=== PATIENT | female | born 1935 | race Caucasian/White ===

== ENCOUNTER 2016-05-07 14:40 | Inpatient (IN) | payer MEDICARE, OTHER ==
[~2016-05-07] VITALS: Ht 165.1 cm; Wt 66.0 kg
[~2016-05-07 14:40] MED LIST: DOCU250C58 PO; HYDR1TAB PO; LEVO50TA74 PO; METO25TA4 PO; MULT1TAB59 PO; POLY17PO PO; SERT50TA6 PO; SMV40T PO
[2016-05-07] MEDS ORDERED: SOD CHLORIDE 0.9% 250 ML IV STA (15:20)
[2016-05-07] MEDS ORDERED: morphine 2 MG INJ IV STA (15:20)
[2016-05-07] MEDS ORDERED: ONDANSETRON 4 MG INJ IV STA (15:20)
[2016-05-07 15:38] LABS: ADD SCAN DIFF NO
[2016-05-07 15:40] LABS: ABNORMAL IP MESSAGE 1; HEMATOCRIT 39.5 % (37.0-47.0); HEMOGLOBIN 12.9 g/dl (12.0-16.0); MEAN CORPUSCULAR HEMOGLOBIN 32.4 pg (29.0-33.0); MEAN CORPUSCULAR HGB CONC 32.7 g/dl (32.0-37.0); MEAN CORPUSCULAR VOLUME 99.2 fl (82.0-101.0); MEAN PLATELET VOLUME 12.3 fl (7.4-10.4); PLATELET COUNT 139 10^3/UL (140-415); RED BLOOD COUNT 3.98 10^6/ul (4.20-5.40); RED CELL DISTRIBUTION WIDTH 14.1 % (11.5-14.5); WHITE BLOOD COUNT 34.1 10^3/ul (4.8-10.8)
[2016-05-07 15:50] LABS: ALBUMIN 4.2 g/dl (3.3-4.9); POTASSIUM 5.3 mmol/L (3.5-5.1)
[2016-05-07 15:52] LABS: CREATININE 1.14 mg/dl (0.44-1.00)
[2016-05-07 15:53] LABS: ALBUMIN/GLOBULIN RATIO 0.91; BILIRUBIN,INDIRECT 0.4 mg/dl (0-1.1); BILIRUBIN,TOTAL 0.4 mg/dl (0.2-1.3); CALCIUM 10.7 mg/dl (8.4-10.2); TOTAL PROTEIN 8.8 g/dl (6.1-8.1)
--- NOTE | 2016-05-07 16:13 | RADRPT ---
PROCEDURE: XR Chest. CLINICAL INDICATION: Right rib pain. TECHNIQUE: Portable AP view of the chest was obtained. COMPARISON: 02/07/2012 FINDINGS: The cardiomediastinal silhouette is within upper normal limits. The lungs are clear. There is no e vidence for pleural effusion, pneumothorax or pulmonary vascular congestion. The osseous structures are intact with no evidence for acute abnormality. RPTAT:HJJR IMPRESSION: No evidence for acute intrathoracic pathology or interval change from 02/07/2012. Physician Frandy Date Time Electronically viewed and signed by Donato Reyes Physician on 05/07/2016 16:13 /
[2016-05-07] MEDS ORDERED: LEVO150T67 PO (16:39)
[2016-05-07] MEDS ORDERED: ACET-2047 PO (16:41)
[2016-05-07] MEDS ORDERED: METAM PO (16:43)
[2016-05-07] MEDS ORDERED: BISA-57 PO (16:45)
[2016-05-07] MEDS ORDERED: ONDA-43 PO (16:46)
[2016-05-07] MEDS ORDERED: LORA1TAB PO (16:48)
[2016-05-07] MEDS ORDERED: TOPI50TA5 PO (16:51)
[2016-05-07 17:08] LABS: EOSINOPHILS # 0.7 10^3/ul (0.0-0.5); LYMPHOCYTES # 11.6 10^3/ul (0.8-2.9); MONOCYTE # 11.9 10^3/ul (0.3-0.9); NEUTROPHIL # 9.5 10^3/ul (1.6-7.5)
[2016-05-07 17:11] LABS: ANISOCYTOSIS 1+; PLATELET ESTIMATE PLT APPEAR ADEQUATE
--- NOTE | 2016-05-07 17:46 | RADRPT ---
PROCEDURE: CT Abdomen and Pelvis without contrast. CLINICAL INDICATION: Abdominal and pelvic pain. Left flank pain. TECHNIQUE: CT scan of the abdomen and pelvis without contrast was performed. Coronal and sagittal reformatted images were obtained from the axial source images. Images were reviewed on a [employer] PACS workstation. Total exam DLP is 827.12 mGy-cm. CTDIvol is 14.04 mGy. One or more of the f ollowing dose reduction techniques were used: Automated exposure control, adjustment of the mA and/o r kV according to patient size, use of iterative reconstruction technique. COMPARISON: None. FINDINGS: There is mild atelectasis at the left lung base posteriorly. The lung bases are otherwise normal. There is no pleural effusion or pericardial effusion. The heart is mildly enlarged. There is exten sive coronary artery calcification. The liver is normal in size and attenuation. There is no focal hepatic lesion. The gallbladder and bile ducts are normal. The spleen is normal in size. There is no focal splenic lesion. Both adrenals are normal with no enlargement or mass. The pancreas is unremarkable with no mass or evidence of pancreatitis. There is no renal mass or hydronephrosis. 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 A nonobst ructing 0.4 cm calculus is present in the mid left kidney. There is no other renal calculus or uret eral calculus. The abdominal aorta is not dilated. There is calcification in the aorta consistent with atheroscler osis. There is no retroperitoneal lymphadenopathy or mass. There is no pelvic lymphadenopathy or mass. The bladder and distal ureters are normal. The appendix is well seen and appears normal. The bowel and mesentery are normal. There is a right lower quadrant abdominal wall hernia containing only omental fat in a region measuring 1.3 x 2.6 cm in AP and transverse dimensions. There is no h erniated bowel. There is no free fluid or free gas. There are degenerative changes of the spine. There is no fracture or lytic lesion. IMPRESSION: 1. Mild atelectasis at the left lung base posteriorly. 2. Mild cardiomegaly. 3. Coronary artery calcification. 4. Duplex left renal collecting system. 5. Nonobstructing 0.4 cm calculus in the mid left kidney. 6. Atherosclerosis. 7. Normal appendix. 8. Right lower quadrant anterior abdominal wall hernia containing only omental fat. 9. Degenerative changes of the spine. RPTAT: QQ .Herberth Stevens MD, MD Date Time Electronically viewed and signed by .Herberth Stevens MD, on 05/07/2016 17:46 .R/
[2016-05-07] MEDS ORDERED: SOD CHLORIDE 0.9% 1,000 ML IV STA (18:47)
[2016-05-07] MEDS: PIPER-TAZO 3.375 GM IV (PMX) 100 ML IVPB STA ×2 (19:07→20:07)
[2016-05-07 19:50] LABS: ADD UMIC YES; URINE BILIRUBIN (Dip) NEGATIVE (NEGATIVE); URINE BLOOD (Dip) 1+ (NEGATIVE); URINE COLOR LT. YELLOW (YELLOW); URINE GLUCOSE (Dip) NEGATIVE (NEGATIVE); URINE KETONES (Dip) NEGATIVE (NEGATIVE); URINE LEUKOCYTE ESTERASE (Dip) TRACE (NEGATIVE); URINE NITRITE (Dip) NEGATIVE (NEGATIVE); URINE TOTAL PROTEIN (Dip) 1+ (NEGATIVE); URINE UROBILINOGEN (Dip) 0.2 E.U./dL (0.1-1.0)
[2016-05-07 20:08] VITALS: TEMP 99.1
[2016-05-07 20:15] LABS: SQUAMOUS EPITHELIAL CELL,UR MANY; URINE RBCS 0-2 /HPF (0)
[2016-05-07] MEDS ORDERED: SOD CHLORIDE 0.9% 1,000 ML IV SCH (20:53)
[2016-05-07] MEDS ORDERED: ONDANSETRON 4 MG INJ IV PRN ×2 (21:00→23:30)
[2016-05-07] MEDS ORDERED: ACETAMINOPHEN 325 MG TAB PO PRN (21:00)
--- NOTE | 2016-05-07 21:02 | ERA ---
ER Documentation Chief Complaint Date/Time DATE: 05/07/16 TIME: 20:54 Chief Complaint Right chest pain, diffuse abdominal pain HPI This is an 81-year-old female is complaining of right sided chest pain for the past 2 days that she says is sharp and worse with movement. She says that she cannot move in bed or walk around because it hurts her right chest when she does. Denies trauma. No shortness of breath no cough denies fever denies vomiting diarrhea. She is also complaining of diffuse abdominal pain mostly located on the left upper and lower quadrant. She has no dysuria or hematuria. She says nothing seems to make his pain worse or better describes it as "pain ". She is a poor historian. ROS All systems reviewed and are negative except as per history of present illness. Medications Home Meds Reported Medications Topiramate* (Topiramate*) 50 Mg Tablet, 50 MG PO Q6H Y for PRN, TAB 05/07/16 Lorazepam* (Lorazepam*) 1 Mg Tablet, 1 MG PO Q8, #60 TAB 05/07/16 Ondansetron Hcl* (Zofran*) 4 Mg Tab, 4 MG PO TID Y for NAUSEA AND OR VOMITING, TAB 05/07/16 Bisacodyl* (Dulcolax*) 5 Mg Tablet.dr, 10 MG PO DAILY Y for CONSTIPATION, TAB 05/07/16 Psyllium* (Metamucil*) 1 Pkt Susp, 1 PKT PO DAILY Y for PRN, PACKET 05/07/16 Acetaminophen* (Acetaminophen*) 650 Mg Tablet, 650 MG PO Q4 Y for ELEVATED TEMP> 100 DEG., #30 TAB FOR MILD PAIN 05/07/16 Levothyroxine Sodium* (Levothyroxine Sodium*) 150 Mcg Tablet, 150 MCG PO BEFORE BREAKFAST, #30 TAB 05/07/16 Discontinued Reported Medications Hydrocodone Bit/Acetaminophen (Hydrocodone/Apap 5/500 Tab) 1 Tab Tablet, 1 TAB PO Q6 Y 02/07/12 Multivitamins* (Multivitamins*) 1 Tab Tablet, 1 TAB PO DAILY 02/07/12 Polyethylene Glycol (Miralax) 17 Gm/Pkt Liq, 17 GM PO DAILY 02/07/12 Simvastatin (Simvastatin) 40 Mg Tablet, 40 MG PO HS 02/07/12 Sertraline Hcl* (Sertraline Hcl*) 50 Mg Tablet, 50 MG PO TID 02/07/12 Metoprolol Tartrate* (Lopressor*) 25 Mg Tablet, 25 MG PO BID 02/07/12 Docusate Sodium* (Colace*) 250 Mg Capsule, 250 MG PO DAILY 02/07/12 Levothyroxine Sodium* (Levothyroxine Sodium*) 50 Mcg Tablet, 50 MCG PO DAILY 02/07/12 Allergies Allergies: Coded Allergies: No Known Allergy (Unverified , 05/07/16) PMhx/Soc History of Surgery: Yes (BREAT CANCER WITH LEFT BREAST REMOVAL) Anesthesia Reaction: No Hx Neurological Disorder: Yes (LT SIDED STROKE) Hx Respiratory Disorders: No Hx Cardiac Disorders: Yes (HTN,HYPERLIPIDEMIA) Hx Psychiatric Problems: Yes (DEPRESSION) Hx Miscellaneous Medical Probl: Yes (HYPOTHYROIDISM,ANEMIA,THROMBOCYTOPENIA) Hx Alcohol Use: No Hx Substance Use: No Hx Tobacco Use: No Smoking Status: Never smoker FmHx Family History: No coronary disease Physical Exam Vitals Vital Signs Date Time Temp Pulse Resp B/P Pulse Ox O2 Delivery O2 Flow Rate FiO2 05/07/16 20:08 99.1 105 24 137/70 100 Room Air 05/07/16 16:47 101 19 118/67 100 Room Air 05/07/16 14:56 98.2 84 19 122/75 97 Physical Exam Const: Well-developed, well-nourished Head: Atraumatic, normocephalic Eyes: Normal Conjunctiva, PERRLA, EOMI, normal sclera, no nystagmus ENT: Normal External Ears, Nose and Mouth, moist mucus membranes. Neck: Full range of motion. No meningismus, no lymphadenopathy. Resp: Clear to auscultation bilaterally, no wheezing, rhonchi, rales Cardio: Regular rate and rhythm, no murmurs, S1 S2 present, there is reproducible tenderness to the right upper and lower rib cage with palpation. She says this is the same pain. The pain is sharp. Abd: Soft, mild diffuse pain in the abdomen there is more pain in the left upper and lower quadrant that is mild to moderate, non distended. Normal bowel sounds, no guarding or rebound, no pulsitile abdominal masses or bruits Skin: No petechiae or rashes, no ecchymosis , no maculopapular rash Back: No midline or flank tenderness Ext: No cyanosis, or edema, FROM x 4, normal inspection, neurovascularly intact x 4 Neur: Awake and alert, STR 5/5 x 4, sensation intact x 4, no focal findings, cerebellum intact Psych: Normal Mood and Affect Result Diagram: 05/07/16 1530 05/07/16 1530 Results 24 hrs Laboratory Tests Test 05/07/16 15:30 05/07/16 19:40 Alanine Aminotransferase (ALT/SGPT) 20IU/L Albumin 4.2g/dl Albumin/Globulin Ratio 0.91 Alkaline Phosphatase 105IU/L Anion Gap 23 Anisocytosis 1+ Aspartate Amino Transf (AST/SGOT) 26IU/L Band Neutrophils % 1.0% Blood Urea Nitrogen 34mg/dl Calcium Level 10.7mg/dl Carbon Dioxide Level 27mmol/L Chloride Level 97mmol/L Creatinine 1.14mg/dl Direct Bilirubin 0.00mg/dl Eosinophils # 0.710^3/ul Eosinophils % 2.0% Globulin 4.60g/dl Glucose Level 247mg/dl Hematocrit 39.5% Hemoglobin 12.9g/dl Indirect Bilirubin 0.4mg/dl Lipase 40U/L Lymphocytes # 11.610^3/ul Lymphocytes % 34.0% Macrocytosis OCCASIONAL Mean Corpuscular Hemoglobin 32.4pg Mean Corpuscular Hemoglobin Concent 32.7g/dl Mean Corpuscular Volume 99.2fl Mean Platelet Volume 12.3fl Monocytes # 11.910^3/ul Monocytes % 35.0% Neutrophils # 9.510^3/ul Neutrophils % 28.0% Platelet Count 59591^3/UL Platelet Estimate PLT APPEAR ADEQUATE Potassium Level 5.3mmol/L Red Blood Count 3.9810^6/ul Red Cell Distribution Width 14.1% Sodium Level 142mmol/L Total Bilirubin 0.4mg/dl Total Protein 8.8g/dl White Blood Count 34.110^3/ul Urine Amorphous Urates MODERATE Urine Bilirubin NEGATIVE Urine Clarity SLIGHTLY CLOUDY Urine Color LT. YELLOW Urine Glucose NEGATIVE% Urine Hemoglobin 1+ Urine Ketones NEGATIVE Urine Leukocyte Esterase TRACE Urine Microscopic RBC 0-2/HPF Urine Microscopic WBC 0-2/HPF Urine Nitrite NEGATIVE Urine Specific [place] 1.015 Urine Squamous Epithelial Cells MANY Urine Total Protein 1+ Urine Urobilinogen 0.2 E.U./dL Urine pH 5.5 Current Medications Medications (Trade) Dose Ordered Sig/Mireya Route PRN Reason Start Time Stop Time Status Last Admin Dose Admin Sodium Chloride (NS) 250 ml @ 250 mls/hr Q1H STAT IV 05/07/16 15:20 05/07/16 16:19 DC 05/07/16 15:42 Morphine Sulfate (morphine) 2 mg ONCE STAT IV 05/07/16 15:20 05/07/16 15:22 DC 05/07/16 15:41 Ondansetron HCl 4 mg 4 mg ONCE STAT IV 05/07/16 15:20 05/07/16 15:22 DC 05/07/16 15:41 Sodium Chloride 1,000 ml @ 1,000 mls/hr Q1H STAT IV 05/07/16 18:47 05/07/16 19:46 DC 05/07/16 19:06 Piperacillin Sod/ Tazobactam Sod (Zosyn 3.375gm/ 100 ml (Pmx)) 100 ml @ 200 mls/hr ONCE STAT IVPB 05/07/16 18:47 05/07/16 19:16 DC 05/07/16 20:07 Procedures/MDM PROCEDURE: CT Abdomen and Pelvis without contrast. CLINICAL INDICATION: Abdominal and pelvic pain. Left flank pain. TECHNIQUE: CT scan of the abdomen and pelvis without contrast was performed. Coronal and sagittal reformatted images were obtained from the axial source images. Images were reviewed on a high-resolution PACS workstation. Total exam DLP is 827.12 mGy-cm. CTDIvol is 14.04 mGy. One or more of the following dose reduction techniques were used: Automated exposure control, adjustment of the mA and/or kV according to patient size, use of iterative reconstruction technique. COMPARISON: None. FINDINGS: There is mild atelectasis at the left lung base posteriorly. The lung bases are otherwise normal. There is no pleural effusion or pericardial effusion. The heart is mildly enlarged. There is extensive coronary artery calcification. The liver is normal in size and attenuation. There is no focal hepatic lesion. The gallbladder and bile ducts are normal. The spleen is normal in size. There is no focal splenic lesion. Both adrenals are normal with no enlargement or mass. The pancreas is unremarkable with no mass or evidence of pancreatitis. There is no renal mass or hydronephrosis. 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 A nonobstructing 0.4 cm calculus is present in the mid left kidney. There is no other renal calculus or ureteral calculus. The abdominal aorta is not dilated. There is calcification in the aorta consistent with atherosclerosis. There is no retroperitoneal lymphadenopathy or mass. There is no pelvic lymphadenopathy or mass. The bladder and distal ureters are normal. The appendix is well seen and appears normal. The bowel and mesentery are normal. There is a right lower quadrant abdominal wall hernia containing only omental fat in a region measuring 1.3 x 2.6 cm in AP and transverse dimensions. There is no herniated bowel. There is no free fluid or free gas. There are degenerative changes of the spine. There is no fracture or lytic lesion. IMPRESSION: 1. Mild atelectasis at the left lung base posteriorly. 2. Mild cardiomegaly. 3. Coronary artery calcification. 4. Duplex left renal collecting system. 5. Nonobstructing 0.4 cm calculus in the mid left kidney. 6. Atherosclerosis. 7. Normal appendix. 8. Right lower quadrant anterior abdominal wall hernia containing only omental fat. 9. Degenerative changes of the spine. RPTAT: QQ .Herberth Stevens MD, MD Date Time Electronically viewed and signed by .Herberth Stevens MD, on 05/07/2016 17:46 .R/ CC: KENNY DE LOS SANTOS DO PROCEDURE: XR Chest. CLINICAL INDICATION: Right rib pain. TECHNIQUE: Portable AP view of the chest was obtained. COMPARISON: 02/07/2012 FINDINGS: The cardiomediastinal silhouette is within upper normal limits. The lungs are clear. There is no evidence for pleural effusion, pneumothorax or pulmonary vascular congestion. The osseous structures are intact with no evidence for acute abnormality. RPTAT:HJJR IMPRESSION: No evidence for acute intrathoracic pathology or interval change from 2011. Physician Frandy Date Time Electronically viewed and signed by Donato Reyes Physician on 05/07/2016 16:13 JR/ CC: KENNY DE LOS SANTOS DO EKG: Rate/Rhythm: Normal Sinus Rhythm,NL intervals QRS, ST, QT: NORMAL FL, QRS, QT] Impression: NORMAL EKG Patient has a very elevated white blood count 34.1. However there is no signs of infectious source. Chest x-ray is negative. Urinalysis is negative. CT scan of abdomen is negative. She may have some bacteremia issue or may be a leukemia. Discussed the case with Dr. Bard shepard who recommended ordering a CT chest and will admit for further workup. Departure Diagnosis: Primary Impression: Leukocytosis Qualified Code: D72.829 - Leukocytosis, unspecified type Additional Impressions: Abdominal pain Qualified Code: R10.84 - Generalized abdominal pain Chest wall pain Condition: Stable KENNY DE LOS SANTOS DO May 07, 2016 21:02
--- NOTE | 2016-05-07 21:35 | RADRPT ---
PROCEDURE: CT Chest. CLINICAL INDICATION: Chest pain TECHNIQUE: CT scan of the chest without contrast was performed on the [employer] volumetric [address] [facility] without contrast. Coronal and sagittal reformatted images were obtained from the axial source images. The CTDI vol is 15.59 mGy and the DLP is 505.29 mGy-cm. COMPARISON: None. FINDINGS: Mild dependent bibasilar atelectasis is seen. No dense consolidation or pleural effusion is seen. The mediastinum and hilum are unremarkable without evidence for mass or lymphadenopathy. Aortic and coronary vascular calcifications are seen. The vascular structures of the mediastinum are otherwise unremarkable in course and caliber. The heart size is mildly enlarged and is without evidence for pericardial thickening or effusion. The axillary regions, subpectoral regions, and supraclavicular regions are all unremarkable. A small hiatal hernia is seen. Imaging obtained through the upper abdo men reveals no acute abnormality. Degenerative spondylosis of the thoracic spine is seen. No osteol ytic or osteoblastic lesion is detected. IMPRESSION: 1. Mild cardiomegaly. 2. Otherwise, no acute pathology in the chest. 3. Small hiatal hernia. RPTAT: HPNM Physician Mary Date Time Electronically viewed and signed by Physician Mary on 05/07/2016 21:34 /
[2016-05-07 23:29] VITALS: BP 107/59; RESP 20
[2016-05-07] MEDS ORDERED: ENOXAPARIN 30 MG/0.3 ML SYG SC ONE (23:40)
[2016-05-07 23:43] VITALS: Ht 165.1 cm; Wt 66.0 kg
[2016-05-08] MEDS ORDERED: BISACODYL (EC) 5 MG TAB PO PRN
[2016-05-08] MEDS ORDERED: ACETAMINOPHEN 500 MG TAB PO PRN
[2016-05-08] MEDS: PIPER-TAZO 3.375 GM IV (PMX) 100 ML IVPB SCH ×5 (01:59→23:42)
[2016-05-08] MEDS: CEPASTAT LOZENGE MT PRN ×2 (02:40→05:45)
[2016-05-08] MEDS: morphine 2 MG INJ IV PRN (02:47)
[2016-05-08] MEDS: LORAZEPAM 1 MG TAB PO PRN (05:41)
[2016-05-08] MEDS: PANTOPRAZOLE (EC) 40 MG TAB PO SCH (05:41)
[2016-05-08] MEDS: LEVOTHYROXINE 150 MCG TAB PO SCH (06:17)
[2016-05-08 08:10] LABS: ADD SCAN DIFF NO
[2016-05-08 08:22] LABS: ABNORMAL IP MESSAGE 1; HEMATOCRIT 38.7 % (37.0-47.0); HEMOGLOBIN 12.1 g/dl (12.0-16.0); MEAN CORPUSCULAR HEMOGLOBIN 31.9 pg (29.0-33.0); MEAN CORPUSCULAR HGB CONC 31.3 g/dl (32.0-37.0); MEAN CORPUSCULAR VOLUME 102.1 fl (82.0-101.0); MEAN PLATELET VOLUME 12.2 fl (7.4-10.4); PLATELET COUNT 138 10^3/UL (140-415); RED BLOOD COUNT 3.79 10^6/ul (4.20-5.40); RED CELL DISTRIBUTION WIDTH 14.3 % (11.5-14.5); WHITE BLOOD COUNT 24.1 10^3/ul (4.8-10.8)
[2016-05-08 08:32] VITALS: BP 131/61; RESP 18
[2016-05-08 08:38] LABS: AMYLASE 66 U/L (11-123)
[2016-05-08 08:45] LABS: ALBUMIN 3.6 g/dl (3.3-4.9); POTASSIUM 4.7 mmol/L (3.5-5.1)
[2016-05-08 08:48] LABS: ALBUMIN/GLOBULIN RATIO 0.8; BILIRUBIN,INDIRECT 0.8 mg/dl (0-1.1); BILIRUBIN,TOTAL 0.8 mg/dl (0.2-1.3); CALCIUM 9.9 mg/dl (8.4-10.2); CREATININE 1.13 mg/dl (0.44-1.00); TOTAL PROTEIN 8.1 g/dl (6.1-8.1)
[2016-05-08] MEDS ORDERED: PSYLLIUM 28% PACKET PO SCH (09:00)
--- NOTE | 2016-05-08 09:06 | RADRPT ---
PROCEDURE: US Abdomen. CLINICAL INDICATION: abdominal pain TECHNIQUE: Multiple real-time images were acquired of the patient's right upper quadrant abdomen a nd retroperitoneum utilizing a high resolution transducer. COMPARISON: 05/07/2016 FINDINGS: The liver demonstrates normal echogenicity. The liver is normal in size and no focal solid lesions are seen. The liver measures 16 cm in length. The portal vein is patent with normal direction of delmy w. No intrahepatic biliary dilatation is seen. The gallbladder was not well visualized. The common bile duct measures 7 mm in maximal dimension. The visualized portions of the pancreas are unremarkable. The tail of the pancreas is not seen. No free fluid is identified. The right kidney is normal in size, and demonstrate normal echogenicity and cortical thickness. The right kidney measures 10 cm in long dimension. There is no evidence of hydronephrosis. There are n o kidney stones. RPTAT: AA IMPRESSION: Gallbladder not visualized, likely due to technical factors and patient's inability to cooperate. Mildly dilated CBD. Otherwise unremarkable. .Johnnie Nelson MD, MD Date Time Electronically viewed and signed by .Johnnie Nelson MD, on 05/08/2016 09:06 .S/
[2016-05-08 10:55] LABS: LYMPHOCYTES # 10.1 10^3/ul (0.8-2.9); MONOCYTE # 4.8 10^3/ul (0.3-0.9)
[2016-05-08] MEDS ORDERED: PSYLLIUM 28% PACKET PO PRN (11:30)
[2016-05-08] MEDS: ENOXAPARIN 30 MG/0.3 ML SYG SC SCH (11:31)
--- NOTE | 2016-05-08 14:25 | HP ---
Date/Time of Note Date/Time of Note DATE: 05/08/16 TIME: 14:22 Assessment/Plan VTE Prophylaxis VTE Prophylaxis Intervention: other Lines/Catheters IV Catheter Type (from Nrsg): Peripheral IV Urinary Cath still in place: No Assessment/Plan Assessment/Plan Leukocytosis - ID consult- dr Oshea notified Generalized abdominal pain - GI consult- Dr Polanco notified Chest wall pain - Cardiology - Dr Ceron notified - Hypertension - Left kidney stone - Urology consult will be appreciated HPI/ROS Admit Date/Time Admit Date/Time May 07, 2016 at 20:54 ROS Right chest pain, diffuse abdominal pain HPI This is an 81-year-old female is complaining of right sided chest pain for the past 2 days that she says is sharp and worse with movement. She says that she cannot move in bed or walk around because it hurts her right chest when she does. Denies trauma. No shortness of breath no cough denies fever denies vomiting diarrhea. She is also complaining of diffuse abdominal pain mostly located on the left upper and lower quadrant. She has no dysuria or hematuria. She says nothing seems to make his pain worse or better describes it as "pain ". She is a poor historian. ROS All systems reviewed and are negative except as per history of present illness. Medications Home Meds Reported Medications Topiramate* (Topiramate*) 50 Mg Tablet, 50 MG PO Q6H Y for PRN, TAB 05/07/16 Lorazepam* (Lorazepam*) 1 Mg Tablet, 1 MG PO Q8, #60 TAB 05/07/16 Ondansetron Hcl* (Zofran*) 4 Mg Tab, 4 MG PO TID Y for NAUSEA AND OR VOMITING, TAB 05/07/16 Bisacodyl* (Dulcolax*) 5 Mg Tablet.dr, 10 MG PO DAILY Y for CONSTIPATION, TAB 05/07/16 Psyllium* (Metamucil*) 1 Pkt Susp, 1 PKT PO DAILY Y for PRN, PACKET 05/07/16 Acetaminophen* (Acetaminophen*) 650 Mg Tablet, 650 MG PO Q4 Y for ELEVATED TEMP> 100 DEG., #30 TAB FOR MILD PAIN 05/07/16 Levothyroxine Sodium* (Levothyroxine Sodium*) 150 Mcg Tablet, 150 MCG PO BEFORE BREAKFAST, #30 TAB 05/07/16 Discontinued Reported Medications Hydrocodone Bit/Acetaminophen (Hydrocodone/Apap 5/500 Tab) 1 Tab Tablet, 1 TAB PO Q6 Y 02/07/12 Multivitamins* (Multivitamins*) 1 Tab Tablet, 1 TAB PO DAILY 02/07/12 Polyethylene Glycol (Miralax) 17 Gm/Pkt Liq, 17 GM PO DAILY 02/07/12 Simvastatin (Simvastatin) 40 Mg Tablet, 40 MG PO HS 02/07/12 Sertraline Hcl* (Sertraline Hcl*) 50 Mg Tablet, 50 MG PO TID 02/07/12 Metoprolol Tartrate* (Lopressor*) 25 Mg Tablet, 25 MG PO BID 02/07/12 Docusate Sodium* (Colace*) 250 Mg Capsule, 250 MG PO DAILY 02/07/12 Levothyroxine Sodium* (Levothyroxine Sodium*) 50 Mcg Tablet, 50 MCG PO DAILY 02/07/12 Allergies Allergies: Coded Allergies: No Known Allergy (Unverified , 05/07/16) Constitutional: no complaints Eyes: no complaints ENT: no complaints Respiratory: cough Cardiovascular: no complaints Gastrointestinal: no complaints Genitourinary: no complaints Musculoskeletal: back pain Skin: no complaints Neurologic: no complaints Endocrine: no complaints Lymphatic: no complaints PMH/Family/Social Past Medical History PMhx/Soc History of Surgery: Yes (BREAT CANCER WITH LEFT BREAST REMOVAL) Anesthesia Reaction: No Hx Neurological Disorder: Yes (LT SIDED STROKE) Hx Respiratory Disorders: No Hx Cardiac Disorders: Yes (HTN,HYPERLIPIDEMIA) Hx Psychiatric Problems: Yes (DEPRESSION) Hx Miscellaneous Medical Probl: Yes (HYPOTHYROIDISM,ANEMIA,THROMBOCYTOPENIA) Hx Alcohol Use: No Hx Substance Use: No Hx Tobacco Use: No Smoking Status: Never smoker FmHx Family History: No coronary disease Social History Smoking Status: Never smoker Exam/Review of Systems Vital Signs Vitals Vital Signs Date Time Temp Pulse Resp B/P Pulse Ox O2 Delivery O2 Flow Rate FiO2 05/08/16 09:57 Nasal Cannula 2.0 05/08/16 08:32 98.2 103 18 131/61 99 Intake and Output 05/07/16 05/07/16 05/08/16 14:59 22:59 06:59 Intake Total 760 ml Output Total 2 ml Balance 758 ml Exam Constitutional: alert, oriented, well developed Psych: no complaints Eyes: EOMI, PERRL, nl sclera ENMT: nl external ears & nose Neck: non-tender Respiratory: clear to auscultation Cardiovascular: nl pulses Gastrointestinal: non-tender, soft Musculoskeletal: muscle weakness Extremities: normal pulses Neurological: nl speech, other (alert, follows simple commands.) Lymph: nontender Labs Result Diagram: 05/08/16 0750 05/08/16 0750 Medications Medications Current Medications Ondansetron HCl (Zofran Inj) 4 mg Q6H PRN IV NAUSEA AND/OR VOMITING; Start 05/07 at 23:30 Enoxaparin Sodium (Lovenox) 30 mg DAILY SC Last administered on 05/08/16 11:31 ; Admin Dose 30 MG; Start 05/08/16 at 09:00 Pantoprazole (Protonix Tab) 40 mg DAILY@06 PO Last administered on 05/08/16 05: 41; Admin Dose 40 MG; Start 05/08/16 at 06:00 Acetaminophen (Tylenol Tab) 500 mg Q4H PRN PO PAIN AND OR ELEVATED TEMP Last administered on 05/08/16 02:39; Admin Dose 500 MG; Start 05/08/16 at 00:00 Morphine Sulfate (morphine) 2 mg Q4H PRN IV PAIN Last administered on 05/08/16 02:47; Admin Dose 2 MG; Start 05/08/16 at 00:00 Lorazepam (Ativan) 1 mg Q8H PRN PO ANXIETY Last administered on 05/08/16 05:41 ; Admin Dose 1 MG; Start 05/08/16 at 00:00 Bisacodyl (Dulcolax) 5 mg DAILY PRN PO CONSTIPATION; Start 05/08/16 at 00:00 Phenol 1 lozenge 1 lozenge Q2H PRN MT SORE THROAT Last administered on 05:45; Admin Dose 1 LOZENGE; Start 05/08/16 at 00:00 Piperacillin Sod/ Tazobactam Sod (Zosyn 3.375gm/ 100 ml (Pmx)) 100 ml @ 200 mls /hr Q6 IVPB Last administered on 05/08/16 11:28; Admin Dose 200 MLS/HR; Start 05/08/16 at 01:00 Influenza Virus Vaccine (Fluzone) 0.5 ml ONCE ONCE IM* ; Start 05/10/16 at 09:00 ; Stop 05/10/16 at 09:01 Psyllium Hydrophilic Mucilloid (Metamucil) 1 pkt DAILY PRN PO CONSTIPATION; Start 05/08/16 at 11:30 Procedures Procedures PROCEDURE: CT Abdomen and Pelvis without contrast. CLINICAL INDICATION: Abdominal and pelvic pain. Left flank pain. TECHNIQUE: CT scan of the abdomen and pelvis without contrast was performed. Coronal and sagittal reformatted images were obtained from the axial source images. Images were reviewed on a high-resolution PACS workstation. Total exam DLP is 827.12 mGy-cm. CTDIvol is 14.04 mGy. One or more of the following dose reduction techniques were used: Automated exposure control, adjustment of the mA and/or kV according to patient size, use of iterative reconstruction technique. COMPARISON: None. FINDINGS: There is mild atelectasis at the left lung base posteriorly. The lung bases are otherwise normal. There is no pleural effusion or pericardial effusion. The heart is mildly enlarged. There is extensive coronary artery calcification. The liver is normal in size and attenuation. There is no focal hepatic lesion. The gallbladder and bile ducts are normal. The spleen is normal in size. There is no focal splenic lesion. Both adrenals are normal with no enlargement or mass. The pancreas is unremarkable with no mass or evidence of pancreatitis. There is no renal mass or hydronephrosis. 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 A nonobstructing 0.4 cm calculus is present in the mid left kidney. There is no other renal calculus or ureteral calculus. The abdominal aorta is not dilated. There is calcification in the aorta consistent with atherosclerosis. There is no retroperitoneal lymphadenopathy or mass. There is no pelvic lymphadenopathy or mass. The bladder and distal ureters are normal. The appendix is well seen and appears normal. The bowel and mesentery are normal. There is a right lower quadrant abdominal wall hernia containing only omental fat in a region measuring 1.3 x 2.6 cm in AP and transverse dimensions. There is no herniated bowel. There is no free fluid or free gas. There are degenerative changes of the spine. There is no fracture or lytic lesion. IMPRESSION: 1. Mild atelectasis at the left lung base posteriorly. 2. Mild cardiomegaly. 3. Coronary artery calcification. 4. Duplex left renal collecting system. 5. Nonobstructing 0.4 cm calculus in the mid left kidney. 6. Atherosclerosis. 7. Normal appendix. 8. Right lower quadrant anterior abdominal wall hernia containing only omental fat. 9. Degenerative changes of the spine. PROCEDURE: XR Chest. CLINICAL INDICATION: Right rib pain. TECHNIQUE: Portable AP view of the chest was obtained. COMPARISON: 02/07/2012 FINDINGS: The cardiomediastinal silhouette is within upper normal limits. The lungs are clear. There is no evidence for pleural effusion, pneumothorax or pulmonary vascular congestion. The osseous structures are intact with no evidence for acute abnormality. RPTAT:HJJR IMPRESSION: No evidence for acute intrathoracic pathology or interval change from 2011. ADELIA PACHECO May 08, 2016 14:25
--- NOTE | 2016-05-08 18:10 | CONS ---
DATE OF ADMISSION: 05/07/2016 DATE OF CONSULTATION: 05/08/2016 TYPE OF CONSULTATION: Infectious Disease. REASON FOR CONSULTATION: Antibiotic management. HISTORY OF PRESENT ILLNESS: Sheri Deleon is an 81-year-old female who was admitted on with right chest pain and diffuse abdominal pain. The patient comes in with right chest pain of 2 days' duration which is sharp and worse with movement. She denies trauma. She denies shortness of breath. She complains of diffuse abdominal pain located in the left upper and also lower quadrants . Her past problems include: 1. Breast CA with left breast removal. 2. Left-sided stroke. 3. Hypertension. 4. Hyperlipidemia. 5. Depression. 6. Hypothyroidism. 7. Anemia. 8. Thrombocytopenia. Acutely, the patient was admitted with a white count of 34.1, H and H of 12.9 and 39.5, platelet cou nt of 139,000. Today on the , her ____ 24.1. Her BUN and creatinine are 29 over 1.13. Her urin e shows trace leukocyte esterase, 0 to 2 white cells per high-power field. Her urine culture is neg ative after 24 hours. Her chest x-ray shows no evidence of acute intrathoracic pathology or interva l change from 02/07/2012. She has a CT scan of the abdomen and pelvis which shows mild atelectasis at the left lung base, cardiomegaly, coronary artery calcification, duplex left renal collecting sys tem, atherosclerosis, normal appendix, right lower quadrant anterior abdominal wall hernia containin g only omental fat, degenerative changes of the spine. Urine culture was negative. The patient was started on Zosyn 3.375 grams IV piggyback q.6. PAST MEDICAL HISTORY: Operations as outlined. FAMILY HISTORY: Noncontributory. SOCIAL HISTORY: She does not smoke, drink or abuse drugs. ALLERGIES: NONE TO PENICILLIN, SULFA OR FOODS. MEDICATIONS: Per chart. REVIEW OF SYSTEMS: As per HPI. PHYSICAL EXAMINATION: GENERAL: The patient is an elderly-appearing female who is chronically ill, in no acute distress. VITAL SIGNS: Stable. She is afebrile. SKIN: Without generalized rash or icterus. HEAD: Normocephalic, atraumatic. EYES, EARS, NOSE, THROAT: Within normal limits. NECK: Supple. LYMPH NODES: None palpable. CHEST: Decreased breath sounds at the bases. HEART: Without murmur or gallop. ABDOMEN: She has tenderness in the right upper quadrant which is sharp. She has some diffuse abdom inal pain both in the left and upper and lower quadrants, so she has diffuse abdominal pain both on the right side and left side. EXTREMITIES: Without cyanosis, clubbing or edema. RECTAL AND GENITAL: Deferred. NEUROLOGIC: No focal neurological abnormalities. As noted, her white count was extremely elevated on admission. She had a CT scan of the chest which showed no acute pathology and an abdominal ultrasound which showed gallbladder not visualized, like ly due to technical factors; mildly dilated common bile duct; otherwise unremarkable. Blood culture s were done. Urine culture was done. The patient is on Zosyn. Will observe culture reports. So far, her urine is negative. I will dict ate my findings to nurse practitioner Des. Dictated By: SHARONDA WISE MD, JD/KARINE Conf#: [id number] DID#: [id number]
[2016-05-08 18:23] LABS: ADD SCAN DIFF NO
[2016-05-08 18:25] LABS: ABNORMAL IP MESSAGE 1; HEMATOCRIT 38.1 % (37.0-47.0); HEMOGLOBIN 12.3 g/dl (12.0-16.0); MEAN CORPUSCULAR HEMOGLOBIN 32.3 pg (29.0-33.0); MEAN CORPUSCULAR HGB CONC 32.3 g/dl (32.0-37.0); MEAN PLATELET VOLUME 11.9 fl (7.4-10.4); PLATELET COUNT 140 10^3/UL (140-415); RED BLOOD COUNT 3.81 10^6/ul (4.20-5.40); RED CELL DISTRIBUTION WIDTH 14.3 % (11.5-14.5); WHITE BLOOD COUNT 24.2 10^3/ul (4.8-10.8)
[2016-05-08 18:43] LABS: POTASSIUM 4.5 mmol/L (3.5-5.1)
[2016-05-08 18:45] LABS: CREATININE 1.01 mg/dl (0.44-1.00)
[2016-05-08 18:46] LABS: CALCIUM 10.2 mg/dl (8.4-10.2)
[2016-05-08] MEDS ORDERED: ONDANSETRON 4 MG INJ IV PRN (19:00)
[2016-05-08] MEDS ORDERED: ACETAMINOPHEN 325 MG TAB PO PRN (19:00)
[2016-05-08 19:02] LABS: EOSINOPHILS # 0.2 10^3/ul (0.0-0.5); LYMPHOCYTES # 11.1 10^3/ul (0.8-2.9); MONOCYTE # 2.7 10^3/ul (0.3-0.9); NEUTROPHIL # 9.9 10^3/ul (1.6-7.5)
[2016-05-08 21:43] VITALS: BP 107/51; RESP 20
[2016-05-09 00:28] VITALS: BP 106/54; RESP 20
[2016-05-09 05:24] LABS: ADD SCAN DIFF NO
[2016-05-09 05:42] LABS: ABNORMAL IP MESSAGE 1; HEMATOCRIT 31.8 % (37.0-47.0); HEMOGLOBIN 10.3 g/dl (12.0-16.0); MEAN CORPUSCULAR HEMOGLOBIN 32.7 pg (29.0-33.0); MEAN CORPUSCULAR HGB CONC 32.4 g/dl (32.0-37.0); MEAN PLATELET VOLUME 12.6 fl (7.4-10.4); PLATELET COUNT 124 10^3/UL (140-415); RED BLOOD COUNT 3.15 10^6/ul (4.20-5.40); RED CELL DISTRIBUTION WIDTH 14.5 % (11.5-14.5); WHITE BLOOD COUNT 26.3 10^3/ul (4.8-10.8)
[2016-05-09 06:03] LABS: POTASSIUM 4.4 mmol/L (3.5-5.1)
[2016-05-09 06:05] LABS: MAGNESIUM 2.2 mg/dl (1.7-2.5); PHOSPHORUS 2.8 mg/dl (2.5-4.9)
[2016-05-09 06:05] LABS: CREATININE 0.89 mg/dl (0.44-1.00)
[2016-05-09 06:06] LABS: CALCIUM 9.7 mg/dl (8.4-10.2)
[2016-05-09] MEDS: LEVOTHYROXINE 150 MCG TAB PO SCH (06:08)
[2016-05-09] MEDS: PANTOPRAZOLE (EC) 40 MG TAB PO SCH (06:08)
[2016-05-09] MEDS: PIPER-TAZO 3.375 GM IV (PMX) 100 ML IVPB SCH ×3 (06:09→17:40)
[2016-05-09 07:52] LABS: LYMPHOCYTES # 10.5 10^3/ul (0.8-2.9); MONOCYTE # 6.6 10^3/ul (0.3-0.9); NEUTROPHIL # 9.2 10^3/ul (1.6-7.5); POLYCHROMASIA FEW
[2016-05-09 07:58] VITALS: BP 113/61; RESP 16
[2016-05-09] MEDS: AMLODIPINE 2.5 MG TAB PO SCH (10:01)
[2016-05-09] MEDS: ENOXAPARIN 30 MG/0.3 ML SYG SC SCH (10:06)
--- NOTE | 2016-05-09 10:52 | PN ---
DATE: 05/09/2016 SUBJECTIVE: No acute changes overnight. The patient is lying comfortably in bed. She has a produc tive cough, but no fevers. VITAL SIGNS: Temperature 97.7, pulse 90, respirations 16, blood pressure 113/61, saturation 100 on 2 liters. WBC today 26.3, H and H 10.3 and 31.8, platelets 124, neutrophils 12.6, BUN 26, creatinine 0.89. MICROBIOLOGY: Cultures have been negative. Urine culture revealed contamination. Urinalysis on ad mission positive for leukocyte esterase, white blood cell count. DIAGNOSTICS: CT of the abdomen and pelvis without contrast revealed mild atelectasis at the left loayinka ng base posteriorly, nonobstructive calculus in the mid left kidney, chest CT showed mild cardiomega ly. ANTIMICROBIALS: Patient is on Zosyn. PHYSICAL EXAMINATION: GENERAL: This is a morbidly obese elderly woman who is in no distress. HEENT: Head atraumatic, normocephalic. Sclerae anicteric. Buccal mucosa dry. NECK: Supple. CHEST: Rise symmetrical. Breath sounds diminished. HEART: S1, S2. ABDOMEN: Soft. Bowel tones present. EXTREMITIES: No cyanosis. ASSESSMENT: 1. Systemic inflammatory response syndrome with persistent leukocytosis. 2. Bronchitis, rule out aspiration. 3. Kidney stone with positive urinalysis on admission. 4. Morbid obesity. 5. History of cerebrovascular accident. 6. History of breast cancer. PLAN: The patient remains stable clinically, no fevers. We are going to do a straight cath and sen d her urine for culture. Continue her on Zosyn for now. Follow chest x-ray in a.m. and if cultures negative consider hematology evaluation to rule out myelodysplasia. Dictated By: SAL SIMON CUSTOMS MANAGER for SHARONDA MATTSON/KARINE Conf#: [id number] DID#: [id number]
--- NOTE | 2016-05-09 13:11 | PN ---
Date/Time of Note Date/Time of Note DATE: 05/09/16 TIME: 13:00 Assessment/Plan VTE Prophylaxis VTE Prophylaxis Intervention: SCD's Lines/Catheters IV C[facility]ter Type (from [facility]): Peripheral IV Urinary Cath still in place: No Assessment/Plan Chief Complaint/Hosp Course ASSESSMENT AND PLAN: - Acute bronchitis. Dr. Oshea is following an infection disease consultation. Continue antibiotics per ID. - Systemic inflammatory response syndrome with persistent leukocytosis. - Persistent leukocytosis, Dr. Linder is following in hematology oncology consultation. Pending bone marrow bone biopsy on Thursday. - Acute kidney injury secondary to dehydration, resolving - Hypothyroidism, continue Synthroid. - Hypernatremia secondary to dehydration, resolving. - Status post CVA - Status post breast cancer with left mastectomy Further recommendations based on clinical course. Plan of care discussed with Dr. Portillo. Problems: Subjective 24 Hr Interval Summary Free Text/Dictation Patient's complains of productive cough, denies any nausea vomiting diarrhea, denies fever. Exam/Review of Systems Vital Signs Vitals Vital Signs Date Time Temp Pulse Resp B/P Pulse Ox O2 Delivery O2 Flow Rate FiO2 05/09/16 07:58 97.7 90 16 113/61 100 05/08/16 21:05 Nasal Cannula 2.0 Intake and Output 05/08/16 05/08/16 05/09/16 15:00 23:00 07:00 Intake Total 200 ml 1000 ml Output Total 850 ml Balance 200 ml 150 ml Exam Constitutional: alert, oriented Psych: no complaints Head: atraumatic, normocephalic Eyes: nl conjunctiva ENMT: nl external ears & nose Neck: non-tender, supple Respiratory: clear to auscultation Cardiovascular: nl pulses, regular rate and rhythm Gastrointestinal: non-tender, soft Genitourinary - Female: nl adnexae Musculoskeletal: nl extremities to inspection Extremities: normal pulses 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 Skin: other (s/p left mastectomy) Results Result Diagram: 05/09/16 0449 05/09/169 Results 24 hrs Laboratory Tests Test 05/08/16 18:15 05/09/16 04:44 05/09/16 04:49 05/09/16 12:05 Anion Gap 18 H 13 Band Neutrophils % 1.0 Blood Urea Nitrogen 24 H 26 H Calcium Level 10.2 9.7 Carbon Dioxide Level 28 28 Chloride Level 106 108 Cholesterol Level 142 Cholesterol/HDL Ratio 5.0 Creatinine 1.01 H 0.89 Eosinophils # 0.2 Eosinophils % 1.0 Glucose Level 229 H 141 # HDL Cholesterol 28 L Hematocrit 38.1 31.8 L Hemoglobin 12.3 10.3 L LDL Cholesterol, Calculated 85 Lipase 26 Lymphocytes # 11.1 H 10.5 H Lymphocytes % 46.0 40.0 Mean Corpuscular Hemoglobin 32.3 32.7 Mean Corpuscular Hemoglobin Concent 32.3 32.4 Mean Corpuscular Volume 100.0 101.0 Mean Platelet Volume 11.9 H 12.6 H Monocytes # 2.7 H 6.6 H Monocytes % 11.0 25.0 H Neutrophils # 9.9 H 9.2 H Neutrophils % 41.0 35.0 L Platelet Count 140 124 L Potassium Level 4.5 4.4 Red Blood Count 3.81 L 3.15 L Red Cell Distribution Width 14.3 14.5 Sodium Level 147 H 145 H Triglycerides Level 146 White Blood Count 24.2 H 26.3 H Magnesium Level 2.2 Phosphorus Level 2.8 Polychromasia FEW Troponin I < 0.012 Medications Medications Current Medications Enoxaparin Sodium (Lovenox) 30 mg DAILY SC Last administered on 05/09/16 10:06 ; Admin Dose 30 MG; Start 05/08/16 at 09:00 Pantoprazole (Protonix Tab) 40 mg DAILY@06 PO Last administered on 05/09/16 06: 08; Admin Dose 40 MG; Start 05/08/16 at 06:00 Morphine Sulfate (morphine) 2 mg Q4H PRN IV PAIN Last administered on 05/08/16 02:47; Admin Dose 2 MG; Start 05/08/16 at 00:00 Lorazepam (Ativan) 1 mg Q8H PRN PO ANXIETY Last administered on 05/08/16 05:41 ; Admin Dose 1 MG; Start 05/08/16 at 00:00 Bisacodyl (Dulcolax) 5 mg DAILY PRN PO CONSTIPATION; Start 05/08/16 at 00:00 Phenol 1 lozenge 1 lozenge Q2H PRN MT SORE THROAT Last administered on 05:45; Admin Dose 1 LOZENGE; Start 05/08/16 at 00:00 Piperacillin Sod/ Tazobactam Sod (Zosyn 3.375gm/ 100 ml (Pmx)) 100 ml @ 200 mls /hr Q6 IVPB Last administered on 05/09/16 12:34; Admin Dose 200 MLS/HR; Start 05/08/16 at 01:00 Influenza Virus Vaccine (Fluzone) 0.5 ml ONCE ONCE IM* ; Start 05/10/16 at 09:00 ; Stop 05/10/16 at 09:01 Psyllium Hydrophilic Mucilloid (Metamucil) 1 pkt DAILY PRN PO CONSTIPATION; Start 05/08/16 at 11:30 Amlodipine Besylate (Norvasc) 2.5 mg DAILY PO Last administered on 05/09/16 10: 01; Admin Dose 2.5 MG; Start 05/09/16 at 09:00 Ondansetron HCl (Zofran Inj) 4 mg Q6H PRN IV NAUSEA AND/OR VOMITING; Start 05/08 at 19:00 Acetaminophen (Tylenol Tab) 650 mg Q6H PRN PO PAIN AND OR ELEVATED TEMP; Start 05/08/16 at 19:00 KHUSHBU MUELLER May 09, 2016 13:11
[2016-05-09] MEDS: GUAIFENESIN/DM 5ML CUP PO PRN ×2 (14:54→21:45)
--- NOTE | 2016-05-09 16:38 | CONS ---
Date/Time of Note Date/Time of Note DATE: 05/09/16 TIME: 16:32 Assessment/Plan Assessment/Plan Chief Complaint/Hosp Course 81-year-old female who was admitted on 05/07 with right chest pain and cough, with leukocytosis 20-30K with platelets 120-130s range and marked monocytosis. CT chest showed no acute pathology in the chest. She is on Zosyn per ID. - Peripheral smear reviewed by pathologist Dr. Jose Miguel Olivier and noable for striking monocytosis but no obvious blasts so does not look like acute monocytic leukemia. No basophilia or eosinophilia so not likely CML. Possible CMML/MDS. Flow cytometry with cytogenetics and next gen sequencing sent 05/08/16 and is pending at this time. Will follow-up. - Otherwise, could be infectious etiology of unknown source with WBC from 34 to 24, now 26 on IV Zosyn. Appreciate ID recs. Will continue to follow. Problems: Consultation Date/Type/Reason Admit Date/Time May 07, 2016 at 20:54 Date of Consultation: May 09, 2016 Type of Consultation: Hematology/Oncology Hx of Present Illness Sheri Deleon is an 81-year-old female who was admitted on 05/07 with right chest pain and diffuse abdominal pain. The patient comes in with right chest pain of 2 days' duration which is sharp and worse with movement. She is coughing so much during my interview that I cannot obtain a reliable history. She had no fever. CT chest showed no acute pathology in the chest. She is on Zosyn per ID. No evidence of bleeding. Eyes: no complaints ENT: no complaints Respiratory: cough Cardiovascular: no complaints Gastrointestinal: no complaints Genitourinary: no complaints Musculoskeletal: back pain Skin: no complaints Neurologic: no complaints Lymphatic: no complaints Psychological: no complaints Past Medical History 1. Breast CA with left mastectomy, unclear history 2. Left-sided stroke. 3. Hypertension. 4. Hyperlipidemia. 5. Depression. 6. Hypothyroidism. Family History Significant Family History: no pertinent family hx Social History Smoking Status: Never smoker Exam/Review of Systems Vital Signs Vitals Vital Signs Date Time Temp Pulse Resp B/P Pulse Ox O2 Delivery O2 Flow Rate FiO2 05/09/16 07:58 97.7 90 16 113/61 100 05/08/16 21:05 Nasal Cannula 2.0 Intake and Output 05/08/16 05/08/16 05/09/16 15:00 23:00 07:00 Intake Total 200 ml 1000 ml Output Total 850 ml Balance 200 ml 150 ml Exam Constitutional: alert, oriented Psych: no complaints Head: atraumatic, normocephalic Eyes: nl conjunctiva ENMT: nl external ears & nose Neck: non-tender, supple Respiratory: clear to auscultation Cardiovascular: nl pulses, regular rate and rhythm Gastrointestinal: non-tender, soft Musculoskeletal: nl extremities to inspection Extremities: normal pulses 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 Skin: other (s/p left mastectomy) Results Result Diagram: 05/09/16 0449 05/09/16 0449 Results 24 hrs Laboratory Tests Test 05/08/16 18:15 05/09/16 04:44 05/09/16 04:49 05/09/16 12:05 Anion Gap 18 H 13 Band Neutrophils % 1.0 Blood Urea Nitrogen 24 H 26 H Calcium Level 10.2 9.7 Carbon Dioxide Level 28 28 Chloride Level 106 108 Cholesterol Level 142 Cholesterol/HDL Ratio 5.0 Creatinine 1.01 H 0.89 Eosinophils # 0.2 Eosinophils % 1.0 Glucose Level 229 H 141 # HDL Cholesterol 28 L Hematocrit 38.1 31.8 L Hemoglobin 12.3 10.3 L LDL Cholesterol, Calculated 85 Lipase 26 Lymphocytes # 11.1 H 10.5 H Lymphocytes % 46.0 40.0 Mean Corpuscular Hemoglobin 32.3 32.7 Mean Corpuscular Hemoglobin Concent 32.3 32.4 Mean Corpuscular Volume 100.0 101.0 Mean Platelet Volume 11.9 H 12.6 H Monocytes # 2.7 H 6.6 H Monocytes % 11.0 25.0 H Neutrophils # 9.9 H 9.2 H Neutrophils % 41.0 35.0 L Platelet Count 140 124 L Potassium Level 4.5 4.4 Red Blood Count 3.81 L 3.15 L Red Cell Distribution Width 14.3 14.5 Sodium Level 147 H 145 H Triglycerides Level 146 White Blood Count 24.2 H 26.3 H Magnesium Level 2.2 Phosphorus Level 2.8 Polychromasia FEW Troponin I < 0.012 Medications Medications Current Medications Enoxaparin Sodium (Lovenox) 30 mg DAILY SC Last administered on 05/09/16t 10:06 ; Admin Dose 30 MG; Start 05/08/16 at 09:00 Pantoprazole (Protonix Tab) 40 mg DAILY@06 PO Last administered on 05/09/16 06: 08; Admin Dose 40 MG; Start 05/08/16 at 06:00 Morphine Sulfate (morphine) 2 mg Q4H PRN IV PAIN Last administered on 05/08/16 02:47; Admin Dose 2 MG; Start 05/08/16 at 00:00 Lorazepam (Ativan) 1 mg Q8H PRN PO ANXIETY Last administered on 05/08/16 05:41 ; Admin Dose 1 MG; Start 05/08/16 at 00:00 Bisacodyl (Dulcolax) 5 mg DAILY PRN PO CONSTIPATION; Start 05/08/16 at 00:00 Phenol 1 lozenge 1 lozenge Q2H PRN MT SORE THROAT Last administered on 05:45; Admin Dose 1 LOZENGE; Start 05/08/16 at 00:00 Piperacillin Sod/ Tazobactam Sod (Zosyn 3.375gm/ 100 ml (Pmx)) 100 ml @ 200 mls /hr Q6 IVPB Last administered on 05/09/16 12:34; Admin Dose 200 MLS/HR; Start 05/08/16 at 01:00 Influenza Virus Vaccine (Fluzone) 0.5 ml ONCE ONCE IM* ; Start 05/10/16 at 09:00 ; Stop 05/10/16 at 09:01 Psyllium Hydrophilic Mucilloid (Metamucil) 1 pkt DAILY PRN PO CONSTIPATION; Start 05/08/16 at 11:30 Amlodipine Besylate (Norvasc) 2.5 mg DAILY PO Last administered on 05/09/16 10: 01; Admin Dose 2.5 MG; Start 05/09/16 at 09:00 Ondansetron HCl (Zofran Inj) 4 mg Q6H PRN IV NAUSEA AND/OR VOMITING; Start 05/08 at 19:00 Acetaminophen (Tylenol Tab) 650 mg Q6H PRN PO PAIN AND OR ELEVATED TEMP; Start 05/08/16 at 19:00 Guaifenesin/ Dextromethorphan (Robitussin Dm Liquid Cup) 5 ml Q4H PRN PO COUGH Last administered on 05/09/16 14:54; Admin Dose 5 ML; Start 05/09/16 at 13:30 TOANTONINA MD May 09, 2016 16:38
[2016-05-09] MEDS ORDERED: GLUCOSE GEL 15 GRAM TUBE BUCCAL PRN (17:30)
[2016-05-09] MEDS ORDERED: DEXTROSE 50% 50 ML SYRINGE IV PRN ×2 (17:30)
[2016-05-09] MEDS ORDERED: GLUCOSE GEL 15 GRAM TUBE PO PRN ×2 (17:30)
[2016-05-09] MEDS ORDERED: GLUCAGON 1 MG INJ IM PRN (17:30)
[2016-05-09] MEDS: INSULIN ASPART [NOVOLOG] 3 ML PEN SC SCH ×2 (17:48→21:00)
[2016-05-09 19:11] VITALS: BP 128/59; RESP 16
--- NOTE | 2016-05-09 20:17 | RADRPT ---
Echocardiogram Report Patient Name: KEITH PITTS Gender: Female Date: 1935 Study Date: 09-May-2016 Addressing Machine Operator: Marla Castorena [facility] Location: 403 Ref. Physician: ADELIA PACHECO Quality: Good Procedures: Transthoracic echocardiogram with complete 2D, M-Mode, and doppler examination. Indications: Chest Pain. 2D/M Mode Doppler Measurement Value Normal Ranges Measurement Value Normal Ranges LVIDd 2D 4.7 3.5 - 5.6 cm AV Peak Neil 1.5 m/sec LVIDs 2D 2.1 2.1 - 4.1 cm AV Peak PG 9.0 mmHg FS 2D 54.8 % AI Peak PG 61.0 mmHg LVPWd 2D 1.0 0.6 - 1.1 cm AI Peak Neil 3.9 m/sec IVSd 2D 1.0 0.6 - 1.1 cm AI PHT 500.0 msec IVS/LVPW 2D 1.0 LVOT Peak Neil 1.2 m/sec AoR Diam 2D 3.0 2.0 - 3.7 cm LVOT Peak PG 6.0 mmHg LA/Ao 2D 1 0 - 1 MV E Peak Neil 0.7 m/sec EDV 2D 101.0 cm3 MV A Peak Neil 0.9 m/sec ESV 2D 9.3 cm3 MV E/A 0.8 LA Dimen 2D 3.5 2.3 - 4.0 cm MV Decel Time 165 msec MV E/A 0.8 TR Peak Neil 2.2 m/sec TR Peak PG 20.0 mmHg RVSP 23.0 mmHg Findings Left Ventricle: Normal left ventricular systolic function. Normal left ventricular cavity size. Mild concentric left ventricular hypertrophy. Ejection fraction is visually estimated at 65 %. Tissue Doppler/Mitral Doppler indices are consistent with impaired relaxation (Stage I diastolic dysfunction). Right Ventricle: Normal right ventricular size. Normal right ventricular systolic function. Left Atrium: The left atrium is normal in size. Right Atrium: The right atrium is normal in size. Mitral Valve: Normal appearance and function of the mitral valve with trace physiologic regurgitation. Aortic Valve: Aortic cusps appear mildly calcified. Mild to moderate aortic valve regurgitation. Tricuspid Valve: Normal appearance of the tricuspid valve. Estimated peak PA systolic pressure 23 mmHg. There is trace tricuspid regurgitation. Pulmonic Valve: Pulmonic valve not well visualized. Pericardium: Normal pericardium with no significant pericardial effusion. Aorta: Normal aortic root. IVC: Normal size and normal respiratory collapse consistent with normal right atrial pressure. Conclusions Normal left ventricular systolic function. Normal left ventricular cavity size. Mild concentric left ventricular hypertrophy. Ejection fraction is visually estimated at 65 %. Tissue Doppler/Mitral Doppler indices are consistent with impaired relaxation (Stage I diastolic dysfunction). Normal appearance and function of the mitral valve with trace physiologic regurgitation. Aortic cusps appear mildly calcified. Mild to moderate aortic valve regurgitation. Normal appearance of the tricuspid valve. Estimated peak PA systolic pressure 23 mmHg. There is trace tricuspid regurgitation. Electronically Signed By: Nieves Ceron 09-May-2016 20:17:06 -0800 Patient Name: KEITH PITTS Study Date: 09-May-2016 [id number]
--- NOTE | 2016-05-09 20:24 | CONS ---
DATE OF ADMISSION: 05/07/2016 DATE OF CONSULTATION: 05/09/2016 REQUESTING PHYSICIAN: Azam Portillo MD Dear Dr. Portillo: Thank you for asking me to see this patient in urological consultation. HISTORY OF PRESENT ILLNESS: This is an 81-year-old female who presented to the hospital with right chest pain and abdominal pain. She described the pain as worse with movement and she has had the pa in for about 3 days prior to her admission. The patient underwent a CT scan of the abdomen and pelv is and that showed a 4 mm stone in the left kidney. A urological consultation was requested. The p atient herself denies having any prior history of kidney stones, and she denies any urinary problem. She denies burning, stinging on urination. No history of gross hematuria. The patient has had ap parently left breast cancer and most likely she had a mastectomy, and she had a breast reconstructio n by taking abdominal flap and reconstructing the breast on the left side. She does have a large sc ar in the lower abdomen usually seen when they have a tummy tuck, but that also is seen when they d o take abdominal flap to reconstruct the breast. She also stated that she has had C-sections as wel l. PAST MEDICAL HISTORY: Also significant for left-sided stroke, history of hypertension, hyperlipidem ia, depression and hypothyroidism. SOCIAL HISTORY: The patient does not smoke, does not drink any alcohol, and there is no history of drug abuse. ALLERGIES: SHE HAS NO KNOWN DRUG ALLERGIES. PHYSICAL EXAMINATION: GENERAL: Reveals an 81-year-old female. She weighs about 66 kilograms. She is 65 inches tall. VITAL SIGNS: Temperature is 97.7. The pulse is 90, respirations 16, blood pressure 113/61. CHEST: Over the left breast shows a scar from her surgery on the left breast, but the breast is pre sent and probably this is a reconstructed breast. Right breast is normal. ABDOMEN: She does have no mass palpable, but she does have a scar going from the iliac crest on the right all the way to the iliac crest on the left, and there is no abdominal mass palpable. EXTREMITIES: Reveal no edema. LABORATORY DATA: Her CBC shows a white count of 26.3, hemoglobin 10.3, hematocrit 31.8. Platelet c ount is 124,000. The BUN is 26, creatinine 0.89, sodium 145, potassium 4.4, chloride 108, CO2 of 28 . Urine culture showed mixed gram-positive organism, and this is most likely because of contaminati on. The CT scan of the abdomen and pelvis again was reported as mild atelectasis at the left lung b ase posteriorly, mild cardiomegaly, coronary artery calcification, duplex left renal collecting syst em, nonobstructing 4 mm stone in the mid left kidney, atherosclerosis, normal appendix, right lower quadrant anterior abdominal wall hernia containing only omental fat, degenerative changes of the spi ne. The CT of the chest: Mild cardiomegaly, otherwise no acute pathology in the chest, small hiata l hernia. The abdominal ultrasound: Gallbladder not visualized, likely due to technical factor and the patient's inability to cooperate, mildly dilated common bile duct, otherwise unremarkable. The patient was on the CT scan, however, the gallbladder was visualized and the gallbladder and the kieran e ducts were normal. IMPRESSION: A 4 mm left renal stone that is not obstructing and it would not be causing her pain an d any problem. Her urine culture has gram-positive organism and is most likely contamination. I wi ll have the nurse do a straight catheterization on her and send the urine for culture. As far as he r leukocytosis, she was seen by Dr. Guillaume and she is being worked up for that. I will follow her urolo gical problem with you. I do thank you for allowing me to help in her care. Dictated By: LOKI BOWEN/KARINE Conf#: [id number] DID#: [id number]
[2016-05-09] MEDS: LINAGLIPTIN 5 MG TABLET PO SCH (20:44)
--- NOTE | 2016-05-09 20:47 | CONS ---
DATE OF ADMISSION: 05/07/2016 DATE OF CONSULTATION: REFERRING PHYSICIAN: Cirilo Portillo MD HISTORY OF PRESENT ILLNESS: Dear Cirilo: Thank you for giving me the opportunity to take care of your patient, who is a pleasant 86-year-old female who came to the emergency room complaining of rig ht-sided chest pain and upper quadrant pain for the last 2 days. The pain was significant in that s he could not walk or move in the bed. No nausea, no vomiting, no GI bleeding. No fever, no chills. REVIEW OF SYSTEMS: Otherwise, was negative. HOME MEDICATIONS: The patient has been takin. Lorazepam. 2. Zofran. 3. Bisacodyl. 4. . 5. Levothyroxine. 6. Multivitamin tablet. 7. MiraLax. 8. Simvastatin. 9. Sertraline. 10. Lopressor. ALLERGIES: NONE. PAST MEDICAL HISTORY: Breast cancer, left mastectomy, CVA left-sided stroke, hypertension, hyperlip idemia, depression, hypothyroidism, thrombocytopenia and anemia. SOCIAL HISTORY: Does not smoke or drink. PHYSICAL EXAMINATION: GENERAL: Alert, awake, not in distress. VITAL SIGNS: Stable. HEENT: Unremarkable. NECK: Supple, no thyromegaly, no lymphadenopathy. CARDIOVASCULAR: No murmur, gallop or click. LUNGS: Clear. ABDOMEN: Soft. Mild tenderness in right upper quadrant. Bowel sounds are good. No mass upper abd omen. EXTREMITIES: No edema. CENTRAL NERVOUS SYSTEM: Grossly within normal limits. LABORATORY DATA: Shows WBC persistently elevated at 26,000. Hematocrit is 31. Platelet count is 1 24. BUN is 26. Creatinine is 0.89. LFTs all within normal limits. Globulin was elevated. IMAGING STUDIES: Abdomen and pelvis CT scan showed mild atelectasis, coronary calcification. There was a small stone, 4 mm, in the mid left kidney, right abdominal wall hernia. Abdomen ultrasound s howed nonvisualization of the gallbladder, mildly dilated common bile duct. The gallbladder was not visualized on ultrasound, but it was intact on the CAT scan. IMPRESSION: 1. Urinary tract infection. 2. Breast cancer status post left mastectomy. 3. Cerebrovascular accident. 4. Hypertension. 5. Obesity. 6. Leukocytosis. 7. Bronchitis. 8. Mildly dilated bile duct with normal LFT. PLAN: Continue antibiotic. Patient may have a myeloproliferative disorder and go for a bone marrow biopsy on Thursday. Since the patient has a persistent right upper quadrant pain with a mildly dilat ed bile duct, I may order MRCP to make sure we are not missing bile duct stone. will be f ollowing for the next few days. Dictated By: NANCY JACKSON MD PJ/NTS Conf#: [id number] DID#: [id number] CC: CIRILO PORTILLO MD;*EndCC*
[2016-05-10] MEDS: PIPER-TAZO 3.375 GM IV (PMX) 100 ML IVPB SCH ×4 (00:26→17:35)
[2016-05-10] MEDS: ACCUCHECK XX SCH (01:31)
[2016-05-10] MEDS ORDERED: ACCUCHECK XX SCH (02:00)
[2016-05-10] MEDS ORDERED: BISACODYL 10 MG SUPP PR PRN (05:00)
[2016-05-10] MEDS: morphine 2 MG INJ IV PRN (05:33)
[2016-05-10] MEDS: PANTOPRAZOLE (EC) 40 MG TAB PO SCH (05:33)
[2016-05-10] MEDS: LEVOTHYROXINE 150 MCG TAB PO SCH (06:44)
[2016-05-10] MEDS: INSULIN ASPART [NOVOLOG] 3 ML PEN SC SCH ×4 (07:50→21:00)
[2016-05-10 08:10] VITALS: BP 137/63; RESP 18
[2016-05-10] MEDS: AMLODIPINE 2.5 MG TAB PO SCH (08:25)
[2016-05-10] MEDS: ENOXAPARIN 30 MG/0.3 ML SYG SC SCH (08:36)
[2016-05-10] MEDS ORDERED: INFLUENZA VIRUS VACCINE 0.5 ML (DISPENSING) IM* ONE (09:00)
--- NOTE | 2016-05-10 11:04 | PN ---
Date/Time of Note Date/Time of Note DATE: 05/10/16 TIME: 11:03 Assessment/Plan VTE Prophylaxis VTE Prophylaxis Intervention: other Lines/Catheters IV [facility]ter [facility] (from [facility]): [facility] Urinary Cath still in place: No Assessment/Plan Chief Complaint/Hosp Course - Acute bronchitis. Dr. Oshea is following an infection disease consultation. Continue antibiotics per ID. - Systemic inflammatory response syndrome with persistent leukocytosis. - Persistent leukocytosis, Dr. Linder is following in hematology oncology consultation. Pending bone marrow bone biopsy on Thursday. - Acute kidney injury secondary to dehydration, resolving - Hypothyroidism, continue Synthroid. - Hypernatremia secondary to dehydration, resolving. - Status post CVA - Status post breast cancer with left mastectomy Problems: Subjective 24 Hr Interval Summary Free Text/Dictation Patient has no complaints Exam/Review of Systems Vital Signs Vitals Vital Signs Date Time Temp Pulse Resp B/P Pulse Ox O2 Delivery O2 Flow Rate FiO2 05/10/16 08:10 98.2 90 18 137/63 92 05/09/16 08:00 Nasal Cannula 2.0 Intake and Output 05/09/16 05/09/16 05/10/16 14:59 22:59 06:59 Intake Total 100 ml 750 ml 850 ml Output Total 750 ml Balance 100 ml 750 ml 100 ml Exam Constitutional: well developed Head: atraumatic, normocephalic Neck: supple Respiratory: clear to auscultation Cardiovascular: regular rate and rhythm Gastrointestinal: non-tender, soft Extremities: normal pulses Results Result Diagram: 05/09/16 0449 05/09/16 0449 Results 24 hrs Laboratory Tests Test 05/09/16 12:05 05/09/16 17:48 05/09/16 20:23 05/10/16 08:23 Troponin I < 0.012 Bedside Glucose 104 136 109 Medications Medications Current Medications Enoxaparin Sodium (Lovenox) 30 mg DAILY SC Last administered on 05/10/16 08:36 ; Admin Dose 30 MG; Start 05/08/16 at 09:00 Pantoprazole (Protonix Tab) 40 mg DAILY@06 PO Last administered on 05/10/16 05: 33; Admin Dose 40 MG; Start 05/08/16 at 06:00 Morphine Sulfate (morphine) 2 mg Q4H PRN IV PAIN Last administered on 05/10/16 05:33; Admin Dose 2 MG; Start 05/08/16 at 00:00 Lorazepam (Ativan) 1 mg Q8H PRN PO ANXIETY Last administered on 05/08/16 05:41 ; Admin Dose 1 MG; Start 05/08/16 at 00:00 Bisacodyl (Dulcolax) 5 mg DAILY PRN PO CONSTIPATION Last administered on 20:44; Admin Dose 5 MG; Start 05/08/16 at 00:00 Phenol 1 lozenge 1 lozenge Q2H PRN MT SORE THROAT Last administered on 05:45; Admin Dose 1 LOZENGE; Start 05/08/16 at 00:00 Piperacillin Sod/ Tazobactam Sod (Zosyn 3.375gm/ 100 ml (Pmx)) 100 ml @ 200 mls /hr Q6 IVPB Last administered on 05/10/16 05:33; Admin Dose 200 MLS/HR; Start 05/08/16 at 01:00 Psyllium Hydrophilic Mucilloid (Metamucil) 1 pkt DAILY PRN PO CONSTIPATION Last administered on 05/09/16 20:44; Admin Dose 1 PKT; Start 05/08/16 at 11:30 Amlodipine Besylate (Norvasc) 2.5 mg DAILY PO Last administered on 05/10/16 08: 25; Admin Dose 2.5 MG; Start 05/09/16 at 09:00 Ondansetron HCl (Zofran Inj) 4 mg Q6H PRN IV NAUSEA AND/OR VOMITING; Start 05/08 at 19:00 Acetaminophen (Tylenol Tab) 650 mg Q6H PRN PO PAIN AND OR ELEVATED TEMP; Start 05/08/16 at 19:00 Guaifenesin/ Dextromethorphan (Robitussin Dm Liquid Cup) 5 ml Q4H PRN PO COUGH Last administered on 05/09/16 21:45; Admin Dose 5 ML; Start 05/09/16 at 13:30 Linagliptin (Tradjenta) 5 mg HS PO Last administered on 05/09/16 20:44; Admin Dose 5 MG; Start 05/09/16 at 21:00 Diagnostic Test (Pha) (Accucheck) 1 ea 02 XX ; Start 05/10/16 at 02:00 Miscellaneous Information 1 ea NOTE XX ; Start 05/09/16 at 17:30 Glucose (Glutose) 15 gm Q15M PRN PO DECREASED GLUCOSE; Start 05/09/16 at 17:30 Glucose (Glutose) 22.5 gm Q15M PRN PO DECREASED GLUCOSE; Start 05/09/16 at 17:30 Dextrose (D50w Syringe) 25 ml Q15M PRN IV DECREASED GLUCOSE; Start 05/09/16 at 17:30 Dextrose (D50w Syringe) 50 ml Q15M PRN IV DECREASED GLUCOSE; Start 05/09/16 at 17:30 Glucagon (Glucagen) 1 mg Q15M PRN IM DECREASED GLUCOSE; Start 05/09/16 at 17:30 Glucose (Glutose) 15 gm Q15M PRN BUCCAL DECREASED GLUCOSE; Start 05/09/16 at 17: 30 Bisacodyl (Dulcolax Supp) 10 mg DAILY PRN [place] CONSTIPATION Last administered on 05/10/16t 04:44; Admin Dose 10 MG; Start 05/10/16 at 05:00 FANY GLASER May 10, 2016 11:04
[2016-05-10 11:31] LABS: ADD SCAN DIFF NO; HAAIG REFLEX REFLEX FILED
[2016-05-10 11:33] LABS: ABNORMAL IP MESSAGE 1; HEMATOCRIT 37.3 % (37.0-47.0); MEAN CORPUSCULAR HEMOGLOBIN 32.5 pg (29.0-33.0); MEAN CORPUSCULAR HGB CONC 32.2 g/dl (32.0-37.0); MEAN CORPUSCULAR VOLUME 101.1 fl (82.0-101.0); MEAN PLATELET VOLUME 12.1 fl (7.4-10.4); PLATELET COUNT 132 10^3/UL (140-415); RED BLOOD COUNT 3.69 10^6/ul (4.20-5.40); RED CELL DISTRIBUTION WIDTH 14.2 % (11.5-14.5); WHITE BLOOD COUNT 22.2 10^3/ul (4.8-10.8)
[2016-05-10 11:34] LABS: RETICULOCYTE COUNT % 1.7 % (0.5-1.5)
[2016-05-10 11:42] LABS: POTASSIUM 3.6 mmol/L (3.5-5.1)
[2016-05-10 11:44] LABS: IRON 71 ug/dl (35-150)
[2016-05-10 11:45] LABS: CREATININE 0.78 mg/dl (0.44-1.00)
[2016-05-10 11:46] LABS: CALCIUM 9.7 mg/dl (8.4-10.2)
[2016-05-10 11:54] LABS: TOTAL IRON BINDING CAPACITY 300 ug/dl (241-421)
--- NOTE | 2016-05-10 13:23 | CONS ---
Date/Time of Note Date/Time of Note DATE: 05/10/16 TIME: 13:21 Assessment/Plan Assessment/Plan Chief Complaint/Hosp Course SUBJECTIVE: No acute changes overnight. The patient is lying comfortably in bed, no fevers, refused straight cath. MICROBIOLOGY: Cultures have been negative. Urine culture revealed contamination. Urinalysis on admission positive for leukocyte esterase, white blood cell count. ANTIMICROBIALS: Zosyn. PHYSICAL EXAMINATION: GENERAL: This is a morbidly obese elderly woman who is in no distress. HEENT: Head atraumatic, normocephalic. Sclerae anicteric. Buccal mucosa dry. NECK: Supple. CHEST: Rise symmetrical. Breath sounds diminished. HEART: S1, S2. ABDOMEN: Soft. Bowel tones present. EXTREMITIES: No cyanosis. ASSESSMENT: 1. Systemic inflammatory response syndrome with persistent leukocytosis. 2. Bronchitis, rule out aspiration. 3. Kidney stone with positive urinalysis on admission. 4. Morbid obesity. 5. History of cerebrovascular accident. 6. History of breast cancer. PLAN: The patient remains stable, no fevers, wbc tracing down. Pending repeat urine cx, she is being followed by urology and hematology teams. Will follow rec -s staff Problems: Consultation Date/Type/Reason Admit Date/Time May 07, 2016 at 20:54 Initial Consult Date 05/09/16 Type of Consultation: ID Exam/Review of Systems Vital Signs Vitals Vital Signs Date Time Temp Pulse Resp B/P Pulse Ox O2 Delivery O2 Flow Rate FiO2 05/10/16 08:10 98.2 90 18 137/63 92 05/09/16 08:00 Nasal Cannula 2.0 Intake and Output 05/09/16 05/09/16 05/10/16 15:00 23:00 07:00 Intake Total 100 ml 750 ml 850 ml Output Total 750 ml Balance 100 ml 750 ml 100 ml Results Result Diagram: 05/10/16 1122 05/10/16 1122 Results 24 hrs Laboratory Tests Test 05/09/16 17:48 05/09/16 20:23 05/10/16 08:23 05/10/16 11:22 Bedside Glucose 104 136 109 Absolute Reticulocyte Count 0.061 Anion Gap 16 Basophils # 0.0 Basophils % 0.2 Blood Urea Nitrogen 16 # Calcium Level 9.7 Carbon Dioxide Level 28 Chloride Level 103 Creatinine 0.78 Eosinophils # 0.1 Eosinophils % 0.5 Ferritin Pending Folate Pending Glucose Level 108 HIV (1&2) Antibody Pending Hematocrit 37.3 Hemoglobin 12.0 Hemoglobin A1c 6.5 H Hepatitis B Core Total Antibody Pending Hepatitis B Surface Antigen Pending Hepatitis C Antibody Pending Iron Level 71 Lactate Dehydrogenase Pending Lymphocytes # 10.3 H Lymphocytes % 46.5 Mean Corpuscular Hemoglobin 32.5 Mean Corpuscular Hemoglobin Concent 32.2 Mean Corpuscular Volume 101.1 H Mean Platelet Volume 12.1 H Monocytes # 6.7 H Monocytes % 30.1 H Neutrophils # 4.7 Neutrophils % 21.3 L Nucleated Red Blood Cells # 0.0 Nucleated Red Blood Cells % 0.0 Percent Iron Saturation 24 Percent Reticulocyte Count 1.7 H Platelet Count 132 L Potassium Level 3.6 Red Blood Count 3.69 L Red Cell Distribution Width 14.2 Sodium Level 143 Total Iron Binding Capacity 300 Vitamin B12 Level Pending White Blood Count 22.2 H Test 05/10/16 12:41 Bedside Glucose 106 Medications Medications Current Medications Enoxaparin Sodium (Lovenox) 30 mg DAILY SC Last administered on 05/10/16 08:36 ; Admin Dose 30 MG; Start 05/08/16 at 09:00 Pantoprazole (Protonix Tab) 40 mg DAILY@06 PO Last administered on 05/10/16 05: 33; Admin Dose 40 MG; Start 05/08/16 at 06:00 Morphine Sulfate (morphine) 2 mg Q4H PRN IV PAIN Last administered on 05/10/16 05:33; Admin Dose 2 MG; Start 05/08/16 at 00:00 Lorazepam (Ativan) 1 mg Q8H PRN PO ANXIETY Last administered on 05/08/16 05:41 ; Admin Dose 1 MG; Start 05/08/16 at 00:00 Bisacodyl (Dulcolax) 5 mg DAILY PRN PO CONSTIPATION Last administered on 20:44; Admin Dose 5 MG; Start 05/08/16 at 00:00 Phenol 1 lozenge 1 lozenge Q2H PRN MT SORE THROAT Last administered on 05:45; Admin Dose 1 LOZENGE; Start 05/08/16 at 00:00 Piperacillin Sod/ Tazobactam Sod (Zosyn 3.375gm/ 100 ml (Pmx)) 100 ml @ 200 mls /hr Q6 IVPB Last administered on 05/10/16 12:42; Admin Dose 200 MLS/HR; Start 05/08/16 at 01:00 Psyllium Hydrophilic Mucilloid (Metamucil) 1 pkt DAILY PRN PO CONSTIPATION Last administered on 05/09/16 20:44; Admin Dose 1 PKT; Start 05/08/16 at 11:30 Amlodipine Besylate (Norvasc) 2.5 mg DAILY PO Last administered on 05/10/16 08: 25; Admin Dose 2.5 MG; Start 05/09/16 at 09:00 Ondansetron HCl (Zofran Inj) 4 mg Q6H PRN IV NAUSEA AND/OR VOMITING; Start 05/08 at 19:00 Acetaminophen (Tylenol Tab) 650 mg Q6H PRN PO PAIN AND OR ELEVATED TEMP; Start 05/08/16 at 19:00 Guaifenesin/ Dextromethorphan (Robitussin Dm Liquid Cup) 5 ml Q4H PRN PO COUGH Last administered on 05/09/16 21:45; Admin Dose 5 ML; Start 05/09/16 at 13:30 Linagliptin (Tradjenta) 5 mg HS PO Last administered on 05/09/16 20:44; Admin Dose 5 MG; Start 05/09/16 at 21:00 Diagnostic Test (Pha) (Accucheck) 1 ea 02 XX ; Start 05/10/16 at 02:00 Miscellaneous Information 1 ea NOTE XX ; Start 05/09/16 at 17:30 Glucose (Glutose) 15 gm Q15M PRN PO DECREASED GLUCOSE; Start 05/09/16 at 17:30 Glucose (Glutose) 22.5 gm Q15M PRN PO DECREASED GLUCOSE; Start 05/09/16 at 17:30 Dextrose (D50w Syringe) 25 ml Q15M PRN IV DECREASED GLUCOSE; Start 05/09/16 at 17:30 Dextrose (D50w Syringe) 50 ml Q15M PRN IV DECREASED GLUCOSE; Start 05/09/16 at 17:30 Glucagon (Glucagen) 1 mg Q15M PRN IM DECREASED GLUCOSE; Start 05/09/16 at 17:30 Glucose (Glutose) 15 gm Q15M PRN BUCCAL DECREASED GLUCOSE; Start 05/09/16 at 17: 30 Bisacodyl (Dulcolax Supp) 10 mg DAILY PRN [place] CONSTIPATION Last administered on 05/10/16t 04:44; Admin Dose 10 MG; Start 05/10/16 at 05:00 SAL SIMON NP May 10, 2016 13:23
--- NOTE | 2016-05-10 13:25 | CONS ---
Date/Time of Note Date/Time of Note DATE: 05/10/16 TIME: 13:19 Assessment/Plan Assessment/Plan Chief Complaint/Hosp Course 81-year-old female who was admitted on 05/07 with right chest pain and cough, with leukocytosis 20-30K with platelets 120-130s range and marked monocytosis. CT chest showed no acute pathology in the chest. She is on Zosyn per ID. - Flow Cytometry Prelim report by Dr. Olivier is of a monoclonal B cell population, may be consistent with myeloproliferative disorder, though cannot characterize. Possible CMML/MDS. Flow cytometry with cytogenetics and next gen sequencing sent 05/08/16 and is pending at this time. Pt was told she needs a bone marrow biopsy,but at this time she is refusing. will f/u final labs ordered on peripheral blood for now - Otherwise, could be infectious etiology of unknown source with WBC from 34 to 24, now 26 on IV Zosyn. Appreciate ID recs. Will continue to follow. - Drop in hemoglobin noted from 12.3 to 10.3. iron panel ok. retic low. LDH, Vitamin B12/folate, HIV and hepatitis panel all pending Problems: Consultation Date/Type/Reason Admit Date/Time May 07, 2016 at 20:54 Initial Consult Date 05/09/16 Type of Consultation: Hematology/Oncology Reason for Consultation leukocytosis Referring Provider: CIRILO JACKMAN MD 24 HR Interval Summary Free Text/Dictation no acute overnight events. continues on IV antibiotics. retaining urine. still with non productive cough. pt told she will need a bone marrow bx and is refusing Exam/Review of Systems Vital Signs Vitals Vital Signs Date Time Temp Pulse Resp B/P Pulse Ox O2 Delivery O2 Flow Rate FiO2 05/10/16 08:10 98.2 90 18 137/63 92 05/09/16 08:00 Nasal Cannula 2.0 Intake and Output 05/09/16 05/09/16 05/10/16 15:00 23:00 07:00 Intake Total 100 ml 750 ml 850 ml Output Total 750 ml Balance 100 ml 750 ml 100 ml Exam Constitutional: alert, oriented Psych: nl mood/affect, no complaints Head: normocephalic Eyes: nl conjunctiva ENMT: nl external ears & nose Neck: non-tender, supple Respiratory: crackles/rales Cardiovascular: regular rate and rhythm Gastrointestinal: soft Musculoskeletal: nl extremities to inspection, nl gait and stance Results Result Diagram: 05/10/16 1122 05/10/16 1122 Results 24 hrs Laboratory Tests Test 05/09/16 17:48 05/09/16 20:23 05/10/16 08:23 05/10/16 11:22 Bedside Glucose 104 136 109 Absolute Reticulocyte Count 0.061 Anion Gap 16 Basophils # 0.0 Basophils % 0.2 Blood Urea Nitrogen 16 # Calcium Level 9.7 Carbon Dioxide Level 28 Chloride Level 103 Creatinine 0.78 Eosinophils # 0.1 Eosinophils % 0.5 Ferritin Pending Folate Pending Glucose Level 108 HIV (1&2) Antibody Pending Hematocrit 37.3 Hemoglobin 12.0 Hemoglobin A1c 6.5 H Hepatitis B Core Total Antibody Pending Hepatitis B Surface Antigen Pending Hepatitis C Antibody Pending Iron Level 71 Lactate Dehydrogenase Pending Lymphocytes # 10.3 H Lymphocytes % 46.5 Mean Corpuscular Hemoglobin 32.5 Mean Corpuscular Hemoglobin Concent 32.2 Mean Corpuscular Volume 101.1 H Mean Platelet Volume 12.1 H Monocytes # 6.7 H Monocytes % 30.1 H Neutrophils # 4.7 Neutrophils % 21.3 L Nucleated Red Blood Cells # 0.0 Nucleated Red Blood Cells % 0.0 Percent Iron Saturation 24 Percent Reticulocyte Count 1.7 H Platelet Count 132 L Potassium Level 3.6 Red Blood Count 3.69 L Red Cell Distribution Width 14.2 Sodium Level 143 Total Iron Binding Capacity 300 Vitamin B12 Level Pending White Blood Count 22.2 H Test 05/10/16 12:41 Bedside Glucose 106 Medications Medications Current Medications Enoxaparin Sodium (Lovenox) 30 mg DAILY SC Last administered on 05/10/16 08:36 ; Admin Dose 30 MG; Start 05/08/16 at 09:00 Pantoprazole (Protonix Tab) 40 mg DAILY@06 PO Last administered on 05/10/16 05: 33; Admin Dose 40 MG; Start 05/08/16 at 06:00 Morphine Sulfate (morphine) 2 mg Q4H PRN IV PAIN Last administered on 05/10/16 05:33; Admin Dose 2 MG; Start 05/08/16 at 00:00 Lorazepam (Ativan) 1 mg Q8H PRN PO ANXIETY Last administered on 05/08/16 05:41 ; Admin Dose 1 MG; Start 05/08/16 at 00:00 Bisacodyl (Dulcolax) 5 mg DAILY PRN PO CONSTIPATION Last administered on 20:44; Admin Dose 5 MG; Start 05/08/16 at 00:00 Phenol 1 lozenge 1 lozenge Q2H PRN [place] SORE THROAT Last administered on 05:45; Admin Dose 1 LOZENGE; Start 05/08/16 at 00:00 Piperacillin Sod/ Tazobactam Sod (Zosyn 3.375gm/ 100 ml (Pmx)) 100 ml @ 200 mls /hr Q6 IVPB Last administered on 05/10/16 12:42; Admin Dose 200 MLS/HR; Start 05/08/16 at 01:00 Psyllium Hydrophilic Mucilloid (Metamucil) 1 pkt DAILY PRN PO CONSTIPATION Last administered on 05/09/16 20:44; Admin Dose 1 PKT; Start 05/08/16 at 11:30 Amlodipine Besylate (Norvasc) 2.5 mg DAILY PO Last administered on 05/10/16 08: 25; Admin Dose 2.5 MG; Start 05/09/16 at 09:00 Ondansetron HCl (Zofran Inj) 4 mg Q6H PRN IV NAUSEA AND/OR VOMITING; Start 05/08 at 19:00 Acetaminophen (Tylenol Tab) 650 mg Q6H PRN PO PAIN AND OR ELEVATED TEMP; Start 05/08/16 at 19:00 Guaifenesin/ Dextromethorphan (Robitussin Dm Liquid Cup) 5 ml Q4H PRN PO COUGH Last administered on 05/09/16 21:45; Admin Dose 5 ML; Start 05/09/16 at 13:30 Linagliptin (Tradjenta) 5 mg HS PO Last administered on 05/09/16 20:44; Admin Dose 5 MG; Start 05/09/16 at 21:00 Diagnostic Test (Pha) (Accucheck) 1 ea 02 XX ; Start 05/10/16 at 02:00 Miscellaneous Information 1 ea NOTE XX ; Start 05/09/16 at 17:30 Glucose (Glutose) 15 gm Q15M PRN PO DECREASED GLUCOSE; Start 05/09/16 at 17:30 Glucose (Glutose) 22.5 gm Q15M PRN PO DECREASED GLUCOSE; Start 05/09/16 at 17:30 Dextrose (D50w Syringe) 25 ml Q15M PRN IV DECREASED GLUCOSE; Start 05/09/16 at 17:30 Dextrose (D50w Syringe) 50 ml Q15M PRN IV DECREASED GLUCOSE; Start 05/09/16 at 17:30 Glucagon (Glucagen) 1 mg Q15M PRN IM DECREASED GLUCOSE; Start 05/09/16 at 17:30 Glucose (Glutose) 15 gm Q15M PRN BUCCAL DECREASED GLUCOSE; Start 05/09/16 at 17: 30 Bisacodyl (Dulcolax Supp) 10 mg DAILY PRN [place] CONSTIPATION Last administered on 05/10/16t 04:44; Admin Dose 10 MG; Start 05/10/16 at 05:00 MERCEDES LEÓN M.D. May 10, 2016 13:25
[2016-05-10 15:06] LABS: HEPATITIS B CORE ANTIBODY NEGATIVE (NEGATIVE)
[2016-05-10 15:32] LABS: LYMPHOCYTES # 8.4 10^3/ul (0.8-2.9); MONOCYTE # 5.8 10^3/ul (0.3-0.9); NEUTROPHIL # 7.3 10^3/ul (1.6-7.5)
[2016-05-10 15:42] LABS: LACTATE DEHYDROGENASE 783 IU/L (313-618)
--- NOTE | 2016-05-10 16:26 | CONS ---
Date/Time of Note Date/Time of Note DATE: 05/10/16 TIME: 16:26 Assessment/Plan Assessment/Plan Chief Complaint/Hosp Course ASSESSMENT: 1. abnormal LFT: awaiting MRCP. 2. Systemic inflammatory response syndrome with persistent leukocytosis. 3. Bronchitis, rule out aspiration. 4. Obesity. 5. History of cerebrovascular accident. 6. History of breast cancer. PLAN: - continue abx - f/u MRCP results - if CBD stone, will perform ERCP with stone extraction Problems: Consultation Date/Type/Reason Admit Date/Time May 07, 2016 at 20:54 Initial Consult Date 05/09/16 Type of Consultation: GI Referring Provider: CIRILO JACKMAN MD 24 HR Interval Summary Free Text/Dictation no abdominal pain, await MRCP Exam/Review of Systems Vital Signs Vitals Vital Signs Date Time Temp Pulse Resp B/P Pulse Ox O2 Delivery O2 Flow Rate FiO2 05/10/16 08:10 98.2 90 18 137/63 92 05/09/16 08:00 Nasal Cannula 2.0 Intake and Output 05/09/16 05/09/16 05/10/16 15:00 23:00 07:00 Intake Total 100 ml 750 ml 850 ml Output Total 750 ml Balance 100 ml 750 ml 100 ml Exam Constitutional: alert, oriented, well developed Psych: nl mood/affect, no complaints Head: atraumatic, normocephalic Eyes: EOMI, nl conjunctiva, nl lids ENMT: nl external ears & nose, nl lips & teeth, nl nasal mucosa & septum Neck: non-tender, supple Respiratory: clear to auscultation, normal air movement Cardiovascular: nl pulses, regular rate and rhythm Gastrointestinal: bowel sounds, non-tender, soft Results Result Diagram: 05/10/16 1122 05/10/16 1122 Results 24 hrs Laboratory Tests Test 05/09/16 17:48 05/09/16 20:23 05/10/16 08:23 05/10/16 11:22 Bedside Glucose 104 136 109 Absolute Reticulocyte Count 0.061 Anion Gap 16 Band Neutrophils % 3.0 Basophils # Basophils % Blood Urea Nitrogen 16 # Calcium Level 9.7 Carbon Dioxide Level 28 Chloride Level 103 Creatinine 0.78 Eosinophils # Eosinophils % Ferritin 102.0 Folate Pending Glucose Level 108 HIV (1&2) Antibody NEGATIVE Hematocrit 37.3 Hemoglobin 12.0 Hemoglobin A1c 6.5 H Hepatitis B Core Total Antibody NEGATIVE Hepatitis B Surface Antigen NEGATIVE Hepatitis C Antibody NEGATIVE Iron Level 71 Lactate Dehydrogenase 783 H Lymphocytes # 8.4 H Lymphocytes % 38.0 Mean Corpuscular Hemoglobin 32.5 Mean Corpuscular Hemoglobin Concent 32.2 Mean Corpuscular Volume 101.1 H Mean Platelet Volume 12.1 H Monocytes # 5.8 H Monocytes % 26.0 H Neutrophils # 7.3 Neutrophils % 33.0 L Nucleated Red Blood Cells # Nucleated Red Blood Cells % Percent Iron Saturation 24 Percent Reticulocyte Count 1.7 H Platelet Count 132 L Potassium Level 3.6 Red Blood Count 3.69 L Red Cell Distribution Width 14.2 Sodium Level 143 Thyroid Stimulating Hormone (TSH) 6.060 H Total Iron Binding Capacity 300 Vitamin B12 Level Pending White Blood Count 22.2 H Test 05/10/16 12:41 Bedside Glucose 106 Medications Medications Current Medications Enoxaparin Sodium (Lovenox) 30 mg DAILY SC Last administered on 05/10/16 08:36 ; Admin Dose 30 MG; Start 05/08/16 at 09:00 Pantoprazole (Protonix Tab) 40 mg DAILY@06 PO Last administered on 05/10/16 05: 33; Admin Dose 40 MG; Start 05/08/16 at 06:00 Morphine Sulfate (morphine) 2 mg Q4H PRN IV PAIN Last administered on 05/10/16 05:33; Admin Dose 2 MG; Start 05/08/16 at 00:00 Lorazepam (Ativan) 1 mg Q8H PRN PO ANXIETY Last administered on 05/08/16 05:41 ; Admin Dose 1 MG; Start 05/08/16 at 00:00 Bisacodyl (Dulcolax) 5 mg DAILY PRN PO CONSTIPATION Last administered on 20:44; Admin Dose 5 MG; Start 05/08/16 at 00:00 Phenol 1 lozenge 1 lozenge Q2H PRN [place] SORE THROAT Last administered on 05:45; Admin Dose 1 LOZENGE; Start 05/08/16 at 00:00 Piperacillin Sod/ Tazobactam Sod (Zosyn 3.375gm/ 100 ml (Pmx)) 100 ml @ 200 mls /hr Q6 IVPB Last administered on 05/10/16 12:42; Admin Dose 200 MLS/HR; Start 05/08/16 at 01:00 Psyllium Hydrophilic Mucilloid (Metamucil) 1 pkt DAILY PRN PO CONSTIPATION Last administered on 05/09/16 20:44; Admin Dose 1 PKT; Start 05/08/16 at 11:30 Amlodipine Besylate (Norvasc) 2.5 mg DAILY PO Last administered on 05/10/16 08: 25; Admin Dose 2.5 MG; Start 05/09/16 at 09:00 Ondansetron HCl (Zofran Inj) 4 mg Q6H PRN IV NAUSEA AND/OR VOMITING; Start 05/08 at 19:00 Acetaminophen (Tylenol Tab) 650 mg Q6H PRN PO PAIN AND OR ELEVATED TEMP; Start 05/08/16 at 19:00 Guaifenesin/ Dextromethorphan (Robitussin Dm Liquid Cup) 5 ml Q4H PRN PO COUGH Last administered on 05/09/16 21:45; Admin Dose 5 ML; Start 05/09/16 at 13:30 Linagliptin (Tradjenta) 5 mg HS PO Last administered on 05/09/16 20:44; Admin Dose 5 MG; Start 05/09/16 at 21:00 Diagnostic Test (Pha) (Accucheck) 1 ea 02 XX ; Start 05/10/16 at 02:00 Miscellaneous Information 1 ea NOTE XX ; Start 05/09/16 at 17:30 Glucose (Glutose) 15 gm Q15M PRN PO DECREASED GLUCOSE; Start 05/09/16 at 17:30 Glucose (Glutose) 22.5 gm Q15M PRN PO DECREASED GLUCOSE; Start 05/09/16 at 17:30 Dextrose (D50w Syringe) 25 ml Q15M PRN IV DECREASED GLUCOSE; Start 05/09/16 at 17:30 Dextrose (D50w Syringe) 50 ml Q15M PRN IV DECREASED GLUCOSE; Start 05/09/16 at 17:30 Glucagon (Glucagen) 1 mg Q15M PRN IM DECREASED GLUCOSE; Start 05/09/16 at 17:30 Glucose (Glutose) 15 gm Q15M PRN BUCCAL DECREASED GLUCOSE; Start 05/09/16 at 17: 30 Bisacodyl (Dulcolax Supp) 10 mg DAILY PRN [place] CONSTIPATION Last administered on 05/10/16 04:44; Admin Dose 10 MG; Start 05/10/16 at 05:00 KAYLI BEARD MD May 10, 2016 16:26
--- NOTE | 2016-05-10 18:34 | RADRPT ---
PROCEDURE: MRCP. CLINICAL INDICATION: Right upper quadrant abdomen pain. Dilated common bile duct. TECHNIQUE: MRCP was performed. The following sequences were obtained: Three plane gradient echo localizers, coronal gradient echo images, breath hold axial T2-weighted fat saturation images, james nal T2-weighted images, axial 3-D LAVA images, axial T2-weighted breath hold fast spin echo images, and 3-D coronal rotating MIP images of the biliary tree. COMPARISON: Right upper quadrant abdomen ultrasound dated 05/08/2016. CT scan of the abdomen and pelvis dated 05/07/2016. FINDINGS: The liver is normal in size. There is normal signal intensity within the liver. There is no focal hepatic lesion. The spleen is normal in size and homogeneous in signal intensity. There are no gallstones in the gallbladder. The common bile duct is mildly dilated measuring 9 mm. There is no filling defect or stricture. Th ere is no evidence of stone or mass. The pancreatic duct is not well seen but appears grossly normal. The right kidney is unremarkable. The left kidney has a duplex collecting system. IMPRESSION: 1. Mildly dilated common bile duct measuring 9 mm. No obstructing lesion visualized. 2. Duplex left collecting system. 3. Otherwise unremarkable MRCP. RPTAT: QQ .Herberth Stevens MD, MD Date Time Electronically viewed and signed by .Herberth Stevens MD, on 05/10/2016 18:34 .R/
[2016-05-10 19:00] VITALS: BP 180/86; RESP 18
[2016-05-10] MEDS: LINAGLIPTIN 5 MG TABLET PO SCH (21:13)
[2016-05-10] MEDS: GUAIFENESIN/DM 5ML CUP PO PRN (21:14)
[2016-05-11] MEDS: ACCUCHECK XX SCH
[2016-05-11] MEDS: PIPER-TAZO 3.375 GM IV (PMX) 100 ML IVPB SCH ×4 (00:17→14:22)
[2016-05-11 00:30] VITALS: BP 157/73; PULSE 85; RESP 18
[2016-05-11] MEDS: GUAIFENESIN/DM 5ML CUP PO PRN (01:10)
[2016-05-11] MEDS: PANTOPRAZOLE (EC) 40 MG TAB PO SCH (05:47)
[2016-05-11 06:14] VITALS: BP 142/69; PULSE 72; RESP 18
[2016-05-11] MEDS: LEVOTHYROXINE 150 MCG TAB PO SCH (06:45)
[2016-05-11] MEDS: INSULIN ASPART [NOVOLOG] 3 ML PEN SC SCH ×4 (07:50→21:00)
[2016-05-11 08:11] VITALS: BP 154/73; RESP 19
[2016-05-11] MEDS: ENOXAPARIN 30 MG/0.3 ML SYG SC SCH (09:00)
[2016-05-11] MEDS: AMLODIPINE 2.5 MG TAB PO SCH (09:44)
[2016-05-11] MEDS: morphine 2 MG INJ IV PRN (09:45)
--- NOTE | 2016-05-11 12:31 | PN ---
Date/Time of Note Date/Time of Note DATE: 05/11/16 TIME: 12:30 Assessment/Plan VTE Prophylaxis VTE Prophylaxis Intervention: other Lines/Catheters IV [facility]ter Type [facility]from [facility] Urinary Cath still in place: No Assessment/Plan Chief Complaint/Hosp Course - Acute bronchitis. Dr. Oshea is following an infection disease consultation. Continue antibiotics per ID. - Systemic inflammatory response syndrome with persistent leukocytosis. - Persistent leukocytosis, Dr. Linder is following in hematology oncology consultation. Pending bone marrow bone biopsy on Thursday. - Acute kidney injury secondary to dehydration, resolving - Hypothyroidism, continue Synthroid. - Hypernatremia secondary to dehydration, resolving. - Status post CVA - Status post breast cancer with left mastectomy Problems: Subjective 24 Hr Interval Summary Free Text/Dictation Patient has no complaints Exam/Review of Systems Vital Signs Vitals Vital Signs Date Time Temp Pulse Resp B/P Pulse Ox O2 Delivery O2 Flow Rate FiO2 05/11/16 08:11 97.9 85 19 154/73 96 05/11/16 06:14 Room Air 05/09/16 08:00 2.0 Intake and Output 05/10/16 05/10/16 05/11/16 15:00 23:00 07:00 Intake Total 100 ml 420 ml 850 ml Output Total 600 ml Balance 100 ml 420 ml 250 ml Exam Constitutional: well developed Head: atraumatic, normocephalic Neck: supple Respiratory: clear to auscultation Cardiovascular: regular rate and rhythm Gastrointestinal: non-tender, soft Extremities: normal pulses Results Result Diagram: 05/10/16 1122 05/10/16 1122 Results 24 hrs Laboratory Tests Test 05/10/16 12:41 05/10/16 17:35 05/10/16 20:39 05/11/16 08:21 Bedside Glucose 106 99 128 86 Test 05/11/16 12:17 Bedside Glucose 91 Medications Medications Current Medications Enoxaparin Sodium (Lovenox) 30 mg DAILY SC Last administered on 05/10/16 08:36 ; Admin Dose 30 MG; Start 05/08/16 at 09:00 Pantoprazole (Protonix Tab) 40 mg DAILY@06 PO Last administered on 05/11/16 05: 47; Admin Dose 40 MG; Start 05/08/16 at 06:00 Morphine Sulfate (morphine) 2 mg Q4H PRN IV PAIN Last administered on 05/11/16 09:45; Admin Dose 2 MG; Start 05/08/16 at 00:00 Lorazepam (Ativan) 1 mg Q8H PRN PO ANXIETY Last administered on 05/08/16 05:41 ; Admin Dose 1 MG; Start 05/08/16 at 00:00 Bisacodyl (Dulcolax) 5 mg DAILY PRN PO CONSTIPATION Last administered on 20:44; Admin Dose 5 MG; Start 05/08/16 at 00:00 Phenol 1 lozenge 1 lozenge Q2H PRN [place] SORE THROAT Last administered on 05:45; Admin Dose 1 LOZENGE; Start 05/08/16 at 00:00 Piperacillin Sod/ Tazobactam Sod (Zosyn 3.375gm/ 100 ml (Pmx)) 100 ml @ 200 mls /hr Q6 IVPB Last administered on 05/11/16 05:46; Admin Dose 200 MLS/HR; Start 05/08/16 at 01:00 Psyllium Hydrophilic Mucilloid (Metamucil) 1 pkt DAILY PRN PO CONSTIPATION Last administered on 05/09/16 20:44; Admin Dose 1 PKT; Start 05/08/16 at 11:30 Amlodipine Besylate (Norvasc) 2.5 mg DAILY PO Last administered on 05/11/16 09: 44; Admin Dose 2.5 MG; Start 05/09/16 at 09:00 Ondansetron HCl (Zofran Inj) 4 mg Q6H PRN IV NAUSEA AND/OR VOMITING; Start 05/08 at 19:00 Acetaminophen (Tylenol Tab) 650 mg Q6H PRN PO PAIN AND OR ELEVATED TEMP; Start 05/08/16 at 19:00 Guaifenesin/ Dextromethorphan (Robitussin Dm Liquid Cup) 5 ml Q4H PRN PO COUGH Last administered on 05/11/16 01:10; Admin Dose 5 ML; Start 05/09/16 at 13:30 Linagliptin (Tradjenta) 5 mg HS PO Last administered on 05/10/16 21:13; Admin Dose 5 MG; Start 05/09/16 at 21:00 Diagnostic Test (Pha) (Accucheck) 1 ea 02 XX ; Start 05/10/16 at 02:00 Miscellaneous Information 1 ea NOTE XX ; Start 05/09/16 at 17:30 Glucose (Glutose) 15 gm Q15M PRN PO DECREASED GLUCOSE; Start 05/09/16 at 17:30 Glucose (Glutose) 22.5 gm Q15M PRN PO DECREASED GLUCOSE; Start 05/09/16 at 17:30 Dextrose (D50w Syringe) 25 ml Q15M PRN IV DECREASED GLUCOSE; Start 05/09/16 at 17:30 Dextrose (D50w Syringe) 50 ml Q15M PRN IV DECREASED GLUCOSE; Start 05/09/16 at 17:30 Glucagon (Glucagen) 1 mg Q15M PRN IM DECREASED GLUCOSE; Start 05/09/16 at 17:30 Glucose (Glutose) 15 gm Q15M PRN BUCCAL DECREASED GLUCOSE; Start 05/09/16 at 17: 30 Bisacodyl (Dulcolax Supp) 10 mg DAILY PRN [place] CONSTIPATION Last administered on 05/10/16 04:44; Admin Dose 10 MG; Start 05/10/16 at 05:00 Clonidine (Catapres) 0.1 mg Q6H PRN PO ELEVATED BLOOD PRESSURE Last administered on 05/10/16 21:40; Admin Dose 0.1 MG; Start 05/10/16 at 21:30 FANY GLASER May 11, 2016 12:30
--- NOTE | 2016-05-11 15:01 | CONS ---
Date/Time of Note Date/Time of Note DATE: 05/11/16 TIME: 14:57 Assessment/Plan Assessment/Plan Chief Complaint/Hosp Course SUBJECTIVE: No acute changes overnight. The patient is lying comfortably in bed, no fevers, not eating per report, refused labs, refused activity. MICROBIOLOGY: Bld cultures have been negative. Urine culture revealed yeast small amount. ANTIMICROBIALS: Zosyn. PHYSICAL EXAMINATION: GENERAL: This is obese elderly woman who is in no distress. HEENT: Head atraumatic, normocephalic. Sclerae anicteric. Buccal mucosa dry. NECK: Supple. CHEST: Rise symmetrical. Breath sounds diminished. HEART: S1, S2. ABDOMEN: Soft. Bowel tones present. EXTREMITIES: No cyanosis. ASSESSMENT: 1. Systemic inflammatory response syndrome with persistent leukocytosis. 2. Bronchitis, rule out aspiration. 3. Kidney stone with positive urinalysis on admission. 4. Obesity. 5. History of cerebrovascular accident. 6. History of breast cancer. PLAN: Remains unchanged, will give a dose of Vfend, change abx to Levaquin, f/ u cxr in am, follow GI/urology/hematology rec-s. DW staff DW staff Problems: Consultation Date/Type/Reason Admit Date/Time May 07, 2016 at 20:54 Initial Consult Date 05/09/16 Type of Consultation: ID Referring Provider: CIRILO JACKMAN MD Exam/Review of Systems Vital Signs Vitals Vital Signs Date Time Temp Pulse Resp B/P Pulse Ox O2 Delivery O2 Flow Rate FiO2 05/11/16 08:11 97.9 85 19 154/73 96 05/11/16 06:14 Room Air 05/09/16 08:00 2.0 Intake and Output 05/10/16 05/10/16 05/11/16 15:00 23:00 07:00 Intake Total 100 ml 420 ml 850 ml Output Total 600 ml Balance 100 ml 420 ml 250 ml Results Result Diagram: 05/10/16 1122 05/10/16 1122 Results 24 hrs Laboratory Tests Test 05/10/16 17:35 05/10/16 20:39 05/11/16 08:21 05/11/16 12:17 Bedside Glucose 99 128 86 91 Medications Medications Current Medications Enoxaparin Sodium (Lovenox) 30 mg DAILY SC Last administered on 05/10/16t 08:36 ; Admin Dose 30 MG; Start 05/08/16 at 09:00 Pantoprazole (Protonix Tab) 40 mg DAILY@06 PO Last administered on 05/11/16 05: 47; Admin Dose 40 MG; Start 05/08/16 at 06:00 Morphine Sulfate (morphine) 2 mg Q4H PRN IV PAIN Last administered on 05/11/16 09:45; Admin Dose 2 MG; Start 05/08/16 at 00:00 Lorazepam (Ativan) 1 mg Q8H PRN PO ANXIETY Last administered on 05/08/16 05:41 ; Admin Dose 1 MG; Start 05/08/16 at 00:00 Bisacodyl (Dulcolax) 5 mg DAILY PRN PO CONSTIPATION Last administered on 20:44; Admin Dose 5 MG; Start 05/08/16 at 00:00 Phenol 1 lozenge 1 lozenge Q2H PRN [place] SORE THROAT Last administered on 05:45; Admin Dose 1 LOZENGE; Start 05/08/16 at 00:00 Piperacillin Sod/ Tazobactam Sod (Zosyn 3.375gm/ 100 ml (Pmx)) 100 ml @ 200 mls /hr Q6 IVPB Last administered on 05/11/16 14:22; Admin Dose 200 MLS/HR; Start 05/08/16 at 01:00 Psyllium Hydrophilic Mucilloid (Metamucil) 1 pkt DAILY PRN PO CONSTIPATION Last administered on 05/09/16 20:44; Admin Dose 1 PKT; Start 05/08/16 at 11:30 Amlodipine Besylate (Norvasc) 2.5 mg DAILY PO Last administered on 05/11/16 09: 44; Admin Dose 2.5 MG; Start 05/09/16 at 09:00 Ondansetron HCl (Zofran Inj) 4 mg Q6H PRN IV NAUSEA AND/OR VOMITING; Start 05/08 at 19:00 Acetaminophen (Tylenol Tab) 650 mg Q6H PRN PO PAIN AND OR ELEVATED TEMP; Start 05/08/16 at 19:00 Guaifenesin/ Dextromethorphan (Robitussin Dm Liquid Cup) 5 ml Q4H PRN PO COUGH Last administered on 05/11/16 01:10; Admin Dose 5 ML; Start 05/09/16 at 13:30 Linagliptin (Tradjenta) 5 mg HS PO Last administered on 05/10/16 21:13; Admin Dose 5 MG; Start 05/09/16 at 21:00 Diagnostic Test (Pha) (Accucheck) 1 ea 02 XX ; Start 05/10/16 at 02:00 Miscellaneous Information 1 ea NOTE XX ; Start 05/09/16 at 17:30 Glucose (Glutose) 15 gm Q15M PRN PO DECREASED GLUCOSE; Start 05/09/16 at 17:30 Glucose (Glutose) 22.5 gm Q15M PRN PO DECREASED GLUCOSE; Start 05/09/16 at 17:30 Dextrose (D50w Syringe) 25 ml Q15M PRN IV DECREASED GLUCOSE; Start 05/09/16 at 17:30 Dextrose (D50w Syringe) 50 ml Q15M PRN IV DECREASED GLUCOSE; Start 05/09/16 at 17:30 Glucagon (Glucagen) 1 mg Q15M PRN IM DECREASED GLUCOSE; Start 05/09/16 at 17:30 Glucose (Glutose) 15 gm Q15M PRN BUCCAL DECREASED GLUCOSE; Start 05/09/16 at 17: 30 Bisacodyl (Dulcolax Supp) 10 mg DAILY PRN [place] CONSTIPATION Last administered on 05/10/16 04:44; Admin Dose 10 MG; Start 05/10/16 at 05:00 Clonidine (Catapres) 0.1 mg Q6H PRN PO ELEVATED BLOOD PRESSURE Last administered on 05/10/16 21:40; Admin Dose 0.1 MG; Start 05/10/16 at 21:30 SAL SIMON NP May 11, 2016 15:01
--- NOTE | 2016-05-11 16:15 | PN ---
DATE: 05/11/2016 SUBJECTIVE: Kidney stone. The patient does have a 4-mm stone in the mid pole of the left kidney. That is unlikely to cause her any pain. She is not complaining of any abdominal pain at the present . OBJECTIVE: VITAL SIGNS: Her temperature is 97.9, pulse is 85, respirations 19, blood pressure 154/73. ABDOMEN: Soft. There is no flank tenderness. LABORATORY DATA: CBC shows an elevated count, and she is being worked up for some blood disease, li ke myelodysplastic disorder, and the oncologist, Dr. Linder, is seeing her. The BUN is 16, creatinin e 0.78. The urine culture, no growth after 24 hours. From a urological standpoint, she does have a left renal stone that is not obstructing. Urine cultu re that was done showed mixed gram-positive organism, and that was most likely contaminated urine. Therefore, I did order a straight cath for urine culture, and that showed so far that there is no gr owth after 24 hours. From a urological standpoint, just observe, and the kidney stone is not causin g any obstruction. Therefore, there is no need to do anything for it. . Dictated By: LOKI BOWEN/KARINE Conf#: [id number] DID#: [id number]
[2016-05-11 19:28] VITALS: BP 141/65; RESP 14
[2016-05-11] MEDS: LINAGLIPTIN 5 MG TABLET PO SCH (21:00)
--- NOTE | 2016-05-11 21:26 | CONS ---
Date/Time of Note Date/Time of Note DATE: 05/11/16 TIME: 21:23 Assessment/Plan Assessment/Plan Chief Complaint/Hosp Course ASSESSMENT: 1. abnormal LFT: awaiting MRCP. 2. Systemic inflammatory response syndrome with persistent leukocytosis. 3. Bronchitis, rule out aspiration. 4. Obesity. 5. History of cerebrovascular accident. 6. History of breast cancer. 7. has kidney stone seen on MRCP PLAN: - continue abx - no CBD stone - urology eval for kidney stone - continue other supportive care Problems: Consultation Date/Type/Reason Admit Date/Time May 07, 2016 at 20:54 Initial Consult Date 05/09/16 Type of Consultation: GI Referring Provider: CIRILO JACKMAN MD 24 HR Interval Summary Free Text/Dictation s/p MRCP that did not show obstructing lesion visualized. No abdominal pain. Exam/Review of Systems Vital Signs Vitals Vital Signs Date Time Temp Pulse Resp B/P Pulse Ox O2 Delivery O2 Flow Rate FiO2 05/11/16 19:28 99.0 89 14 141/65 99 05/11/16 06:14 Room Air 05/09/16 08:00 2.0 Intake and Output 05/10/16 05/10/16 05/11/16 15:00 23:00 07:00 Intake Total 100 ml 420 ml 850 ml Output Total 600 ml Balance 100 ml 420 ml 250 ml Exam Constitutional: alert, oriented, well developed Psych: nl mood/affect, no complaints Head: atraumatic, normocephalic Eyes: EOMI, nl conjunctiva, nl lids ENMT: nl external ears & nose, nl lips & teeth, nl nasal mucosa & septum Neck: non-tender, supple Respiratory: clear to auscultation, normal air movement Cardiovascular: nl pulses, regular rate and rhythm Gastrointestinal: bowel sounds, non-tender, soft Results Result Diagram: 05/10/16 1122 05/10/16 1122 Results 24 hrs Laboratory Tests Test 05/11/16 08:21 05/11/16 12:17 05/11/16 17:55 05/11/16 20:25 Bedside Glucose 86 91 127 145 Medications Medications Current Medications Enoxaparin Sodium (Lovenox) 30 mg DAILY SC Last administered on 05/10/16t 08:36 ; Admin Dose 30 MG; Start 05/08/16 at 09:00 Pantoprazole (Protonix Tab) 40 mg DAILY@06 PO Last administered on 05/11/16 05: 47; Admin Dose 40 MG; Start 05/08/16 at 06:00 Morphine Sulfate (morphine) 2 mg Q4H PRN IV PAIN Last administered on 05/11/16 09:45; Admin Dose 2 MG; Start 05/08/16 at 00:00 Lorazepam (Ativan) 1 mg Q8H PRN PO ANXIETY Last administered on 05/08/16 05:41 ; Admin Dose 1 MG; Start 05/08/16 at 00:00 Bisacodyl (Dulcolax) 5 mg DAILY PRN PO CONSTIPATION Last administered on 20:44; Admin Dose 5 MG; Start 05/08/16 at 00:00 Phenol (Cepastat Lozenge) 1 lozenge Q2H PRN [place] SORE THROAT Last administered on 05/08/16 05:45; Admin Dose 1 LOZENGE; Start 05/08/16 at 00:00 Psyllium Hydrophilic Mucilloid (Metamucil) 1 pkt DAILY PRN PO CONSTIPATION Last administered on 05/09/16 20:44; Admin Dose 1 PKT; Start 05/08/16 at 11:30 Amlodipine Besylate (Norvasc) 2.5 mg DAILY PO Last administered on 05/11/16 09: 44; Admin Dose 2.5 MG; Start 05/09/16 at 09:00 Ondansetron HCl (Zofran Inj) 4 mg Q6H PRN IV NAUSEA AND/OR VOMITING; Start 05/08 at 19:00 Acetaminophen (Tylenol Tab) 650 mg Q6H PRN PO PAIN AND OR ELEVATED TEMP; Start 05/08/16 at 19:00 Guaifenesin/ Dextromethorphan (Robitussin Dm Liquid Cup) 5 ml Q4H PRN PO COUGH Last administered on 05/11/16 01:10; Admin Dose 5 ML; Start 05/09/16 at 13:30 Linagliptin (Tradjenta) 5 mg HS PO Last administered on 05/10/16 21:13; Admin Dose 5 MG; Start 05/09/16 at 21:00 Diagnostic Test (Pha) (Accucheck) 1 ea 02 XX ; Start 05/10/16 at 02:00 Miscellaneous Information 1 ea NOTE XX ; Start 05/09/16 at 17:30 Glucose (Glutose) 15 gm Q15M PRN PO DECREASED GLUCOSE; Start 05/09/16 at 17:30 Glucose (Glutose) 22.5 gm Q15M PRN PO DECREASED GLUCOSE; Start 05/09/16 at 17:30 Dextrose (D50w Syringe) 25 ml Q15M PRN IV DECREASED GLUCOSE; Start 05/09/16 at 17:30 Dextrose (D50w Syringe) 50 ml Q15M PRN IV DECREASED GLUCOSE; Start 05/09/16 at 17:30 Glucagon (Glucagen) 1 mg Q15M PRN IM DECREASED GLUCOSE; Start 05/09/16 at 17:30 Glucose (Glutose) 15 gm Q15M PRN BUCCAL DECREASED GLUCOSE; Start 05/09/16 at 17: 30 Bisacodyl (Dulcolax Supp) 10 mg DAILY PRN [place] CONSTIPATION Last administered on 05/10/16 04:44; Admin Dose 10 MG; Start 05/10/16 at 05:00 Clonidine (Catapres) 0.1 mg Q6H PRN PO ELEVATED BLOOD PRESSURE Last administered on 05/10/16 21:40; Admin Dose 0.1 MG; Start 05/10/16 at 21:30 Levofloxacin (Levaquin) 500 mg DAILY@06 GTB ; Start 05/12/16 at 06:00 KAYLI BEARD MD May 11, 2016 21:26
[2016-05-12] MEDS: ACCUCHECK XX SCH (02:00)
[2016-05-12] MEDS: LORAZEPAM 1 MG TAB PO PRN (02:39)
[2016-05-12] MEDS: PANTOPRAZOLE (EC) 40 MG TAB PO SCH (05:43)
[2016-05-12] MEDS: LEVOFLOXACIN 500 MG TAB GTB SCH (05:43)
[2016-05-12] MEDS: LEVOTHYROXINE 150 MCG TAB PO SCH (05:43)
[2016-05-12 07:35] VITALS: BP 156/69; RESP 17
[2016-05-12] MEDS: INSULIN ASPART [NOVOLOG] 3 ML PEN SC SCH ×4 (07:50→20:13)
[2016-05-12] MEDS: AMLODIPINE 2.5 MG TAB PO SCH (08:24)
[2016-05-12] MEDS: ENOXAPARIN 30 MG/0.3 ML SYG SC SCH (08:27)
[2016-05-12] MEDS: GUAIFENESIN/DM 5ML CUP PO PRN (08:29)
--- NOTE | 2016-05-12 09:08 | RADRPT ---
PROCEDURE: XR Chest. CLINICAL INDICATION: 81-year-old female with pneumonia. Prior history of right rib pain. TECHNIQUE: Single frontal view of the chest was obtained COMPARISON: Chest x-ray 05/07/2016 03:59 p.m. FINDINGS: The soft tissues are normal. There are degenerative osteophytes in the thoracic spine. There are d egenerative changes of the left glenohumeral joint. The heart is enlarged with uplifting of the car diac apex. The cardiomediastinal silhouette, pulmonary vasculature and hilar structures are normal. There are atherosclerotic vascular calcifications in the aortic arch. There is atelectasis in the right lower lobe with elevation of the right diaphragm. There are clips in the left axilla. The cos tophrenic angles are normal. Some peribronchial cuffing is noted. IMPRESSION: 1. Elevation right diaphragm likely the result of right lower lobe atelectasis. 2. Peribronchial cuffing could be the result of a inflammatory process such as bronchitis. 3. Clips in the left axilla. 4. Atherosclerotic vascular disease. 5. Mild cardiomegaly. RPTAT:AAJJ Physician Leonel Date Time Electronically viewed and signed by Physician Leonel on 05/12/2016 09:08 ROGER/
--- NOTE | 2016-05-12 11:29 | CONS ---
Date/Time of Note Date/Time of Note DATE: 05/12/16 TIME: 11:23 Assessment/Plan Assessment/Plan Chief Complaint/Hosp Course 81-year-old female who was admitted on 05/07 with right chest pain and cough, with leukocytosis 20-30K with platelets 120-130s range and marked monocytosis. CT chest showed no acute pathology in the chest. She is on Zosyn per ID. - Flow Cytometry Prelim report by Dr. Olivier is of a monoclonal B cell population, may be consistent with myeloproliferative disorder, though cannot characterize. Possible CMML/MDS. Flow cytometry with cytogenetics and next gen sequencing sent 05/08/16 and is pending at this time. Pt was told she needs a bone marrow biopsy,but at this time she is refusing. will f/u final labs ordered on peripheral blood for now. Thus far slightly elevated LDH is likely frm underlying infection. There is no evidence of Vit B12 nor folate deficiency. - Otherwise, could be infectious etiology of unknown source with WBC from 34 to 24, now 26 on IV Zosyn. Appreciate ID recs. Will continue to follow. Problems: Consultation Date/Type/Reason Admit Date/Time May 07, 2016 at 20:54 Initial Consult Date 05/09/16 Type of Consultation: Hematology Reason for Consultation myeloproliferative disorder Referring Provider: CIRILO JACKMAN MD 24 HR Interval Summary Free Text/Dictation no acute overnight events. pt told she needs a bone marrow bx but has refused again. she states she wants nothing done Exam/Review of Systems Vital Signs Vitals Vital Signs Date Time Temp Pulse Resp B/P Pulse Ox O2 Delivery O2 Flow Rate FiO2 05/12/16 08:00 Nasal Cannula 2.0 05/12/16 07:35 97.7 90 17 156/69 94 Intake and Output 05/11/16 05/11/16 05/12/16 15:00 23:00 07:00 Intake Total 200 ml 700 ml 480 ml Balance 200 ml 700 ml 480 ml Exam Constitutional: alert, oriented Psych: no complaints Head: atraumatic, normocephalic Eyes: nl conjunctiva ENMT: nl external ears & nose Neck: non-tender, supple Respiratory: clear to auscultation Cardiovascular: regular rate and rhythm Musculoskeletal: nl extremities to inspection, nl gait and stance Extremities: normal pulses Results Result Diagram: 05/10/16 1122 05/10/16 1122 Results 24 hrs Laboratory Tests Test 05/11/16 12:17 05/11/16 17:55 05/11/16 20:25 05/12/16 07:51 Bedside Glucose 91 127 145 111 Medications Medications Current Medications Enoxaparin Sodium (Lovenox) 30 mg DAILY SC Last administered on 05/12/16 08:27 ; Admin Dose 30 MG; Start 05/08/16 at 09:00 Pantoprazole (Protonix Tab) 40 mg DAILY@06 PO Last administered on 05/12/16 05: 43; Admin Dose 40 MG; Start 05/08/16 at 06:00 Morphine Sulfate (morphine) 2 mg Q4H PRN IV PAIN Last administered on 05/11/16 09:45; Admin Dose 2 MG; Start 05/08/16 at 00:00 Lorazepam (Ativan) 1 mg Q8H PRN PO ANXIETY Last administered on 05/12/16 02:39 ; Admin Dose 1 MG; Start 05/08/16 at 00:00 Bisacodyl (Dulcolax) 5 mg DAILY PRN PO CONSTIPATION Last administered on 20:44; Admin Dose 5 MG; Start 05/08/16 at 00:00 Phenol (Cepastat Lozenge) 1 lozenge Q2H PRN [place] SORE THROAT Last administered on 05/08/16 05:45; Admin Dose 1 LOZENGE; Start 05/08/16 at 00:00 Psyllium Hydrophilic Mucilloid (Metamucil) 1 pkt DAILY PRN PO CONSTIPATION Last administered on 05/09/16 20:44; Admin Dose 1 PKT; Start 05/08/16 at 11:30 Amlodipine Besylate (Norvasc) 2.5 mg DAILY PO Last administered on 05/12/16 08: 24; Admin Dose 2.5 MG; Start 05/09/16 at 09:00 Ondansetron HCl (Zofran Inj) 4 mg Q6H PRN IV NAUSEA AND/OR VOMITING; Start 05/08 at 19:00 Acetaminophen (Tylenol Tab) 650 mg Q6H PRN PO PAIN AND OR ELEVATED TEMP; Start 05/08/16 at 19:00 Guaifenesin/ Dextromethorphan (Robitussin Dm Liquid Cup) 5 ml Q4H PRN PO COUGH Last administered on 05/12/16 08:29; Admin Dose 5 ML; Start 05/09/16 at 13:30 Linagliptin (Tradjenta) 5 mg HS PO Last administered on 05/10/16 21:13; Admin Dose 5 MG; Start 05/09/16 at 21:00 Diagnostic Test (Pha) (Accucheck) 1 ea 02 XX ; Start 05/10/16 at 02:00 Miscellaneous Information 1 ea NOTE XX ; Start 05/09/16 at 17:30 Glucose (Glutose) 15 gm Q15M PRN PO DECREASED GLUCOSE; Start 05/09/16 at 17:30 Glucose (Glutose) 22.5 gm Q15M PRN PO DECREASED GLUCOSE; Start 05/09/16 at 17:30 Dextrose (D50w Syringe) 25 ml Q15M PRN IV DECREASED GLUCOSE; Start 05/09/16 at 17:30 Dextrose (D50w Syringe) 50 ml Q15M PRN IV DECREASED GLUCOSE; Start 05/09/16 at 17:30 Glucagon (Glucagen) 1 mg Q15M PRN IM DECREASED GLUCOSE; Start 05/09/16 at 17:30 Glucose (Glutose) 15 gm Q15M PRN BUCCAL DECREASED GLUCOSE; Start 05/09/16 at 17: 30 Bisacodyl (Dulcolax Supp) 10 mg DAILY PRN [place] CONSTIPATION Last administered on 05/10/16 04:44; Admin Dose 10 MG; Start 05/10/16 at 05:00 Clonidine (Catapres) 0.1 mg Q6H PRN PO ELEVATED BLOOD PRESSURE Last administered on 05/10/16 21:40; Admin Dose 0.1 MG; Start 05/10/16 at 21:30 Levofloxacin (Levaquin) 500 mg DAILY@06 GTB Last administered on 05/12/16 05:43 ; Admin Dose 500 MG; Start 05/12/16 at 06:00 MERCEDES LEÓN M.D. May 12, 2016 11:29
--- NOTE | 2016-05-12 11:54 | CONS ---
Date/Time of Note Date/Time of Note DATE: 05/12/16 TIME: 11:53 Assessment/Plan Assessment/Plan Chief Complaint/Hosp Course SUBJECTIVE: No acute changes overnight. The patient is lying comfortably in bed, no fevers ANTIMICROBIALS: Levaquin. PHYSICAL EXAMINATION: GENERAL: This is obese elderly woman who is in no distress. HEENT: Head atraumatic, normocephalic. Sclerae anicteric. Buccal mucosa dry. NECK: Supple. CHEST: Rise symmetrical. Breath sounds diminished. HEART: S1, S2. ABDOMEN: Soft. Bowel tones present. EXTREMITIES: No cyanosis. ASSESSMENT: 1. Systemic inflammatory response syndrome with persistent leukocytosis ?MDS. 2. Bronchitis, rule out aspiration. 3. Kidney stone with positive urinalysis on admission. 4. Obesity. 5. History of cerebrovascular accident. 6. History of breast cancer. PLAN: Remains unchanged, continue present care, abx, follow GI/urology/ hematology rec-s, refused BM bx. DW staff DW staff Problems: Consultation Date/Type/Reason Admit Date/Time May 07, 2016 at 20:54 Initial Consult Date 05/09/16 Type of Consultation: ID Referring Provider: CIRILO JACKMAN MD Exam/Review of Systems Vital Signs Vitals Vital Signs Date Time Temp Pulse Resp B/P Pulse Ox O2 Delivery O2 Flow Rate FiO2 05/12/16 08:00 Nasal Cannula 2.0 05/12/16 07:35 97.7 90 17 156/69 94 Intake and Output 05/11/16 05/11/16 05/12/16 15:00 23:00 07:00 Intake Total 200 ml 700 ml 480 ml Balance 200 ml 700 ml 480 ml Results Result Diagram: 05/10/16 1122 05/10/16 1122 Results 24 hrs Laboratory Tests Test 05/11/16 12:17 05/11/16 17:55 05/11/16 20:25 05/12/16 07:51 Bedside Glucose 91 127 145 111 Medications Medications Current Medications Enoxaparin Sodium (Lovenox) 30 mg DAILY SC Last administered on 05/12/16 08:27 ; Admin Dose 30 MG; Start 05/08/16 at 09:00 Pantoprazole (Protonix Tab) 40 mg DAILY@06 PO Last administered on 05/12/16 05: 43; Admin Dose 40 MG; Start 05/08/16 at 06:00 Morphine Sulfate (morphine) 2 mg Q4H PRN IV PAIN Last administered on 05/11/16 09:45; Admin Dose 2 MG; Start 05/08/16 at 00:00 Lorazepam (Ativan) 1 mg Q8H PRN PO ANXIETY Last administered on 05/12/16 02:39 ; Admin Dose 1 MG; Start 05/08/16 at 00:00 Bisacodyl (Dulcolax) 5 mg DAILY PRN PO CONSTIPATION Last administered on 20:44; Admin Dose 5 MG; Start 05/08/16 at 00:00 Phenol (Cepastat Lozenge) 1 lozenge Q2H PRN [place] SORE THROAT Last administered on 05/08/16 05:45; Admin Dose 1 LOZENGE; Start 05/08/16 at 00:00 Psyllium Hydrophilic Mucilloid (Metamucil) 1 pkt DAILY PRN PO CONSTIPATION Last administered on 05/09/16 20:44; Admin Dose 1 PKT; Start 05/08/16 at 11:30 Amlodipine Besylate (Norvasc) 2.5 mg DAILY PO Last administered on 05/12/16 08: 24; Admin Dose 2.5 MG; Start 05/09/16 at 09:00 Ondansetron HCl (Zofran Inj) 4 mg Q6H PRN IV NAUSEA AND/OR VOMITING; Start 05/08 at 19:00 Acetaminophen (Tylenol Tab) 650 mg Q6H PRN PO PAIN AND OR ELEVATED TEMP; Start 05/08/16 at 19:00 Guaifenesin/ Dextromethorphan (Robitussin Dm Liquid Cup) 5 ml Q4H PRN PO COUGH Last administered on 05/12/16 08:29; Admin Dose 5 ML; Start 05/09/16 at 13:30 Linagliptin (Tradjenta) 5 mg HS PO Last administered on 05/10/16 21:13; Admin Dose 5 MG; Start 05/09/16 at 21:00 Diagnostic Test (Pha) (Accucheck) 1 ea 02 XX ; Start 05/10/16 at 02:00 Miscellaneous Information 1 ea NOTE XX ; Start 05/09/16 at 17:30 Glucose (Glutose) 15 gm Q15M PRN PO DECREASED GLUCOSE; Start 05/09/16 at 17:30 Glucose (Glutose) 22.5 gm Q15M PRN PO DECREASED GLUCOSE; Start 05/09/16 at 17:30 Dextrose (D50w Syringe) 25 ml Q15M PRN IV DECREASED GLUCOSE; Start 05/09/16 at 17:30 Dextrose (D50w Syringe) 50 ml Q15M PRN IV DECREASED GLUCOSE; Start 05/09/16 at 17:30 Glucagon (Glucagen) 1 mg Q15M PRN IM DECREASED GLUCOSE; Start 05/09/16 at 17:30 Glucose (Glutose) 15 gm Q15M PRN BUCCAL DECREASED GLUCOSE; Start 05/09/16 at 17: 30 Bisacodyl (Dulcolax Supp) 10 mg DAILY PRN [place] CONSTIPATION Last administered on 05/10/16 04:44; Admin Dose 10 MG; Start 05/10/16 at 05:00 Clonidine (Catapres) 0.1 mg Q6H PRN PO ELEVATED BLOOD PRESSURE Last administered on 05/10/16 21:40; Admin Dose 0.1 MG; Start 05/10/16 at 21:30 Levofloxacin (Levaquin) 500 mg DAILY@06 GTB Last administered on 05/12/16 05:43 ; Admin Dose 500 MG; Start 05/12/16 at 06:00 SAL SIMON NP May 12, 2016 11:54
--- NOTE | 2016-05-12 16:28 | PN ---
Date/Time of Note Date/Time of Note DATE: 05/12/16 TIME: 16:27 Assessment/Plan VTE Prophylaxis VTE Prophylaxis Intervention: SCD's Lines/Catheters IV [facility]ter [facility]from [facility] Urinary Cath still in place: No Assessment/Plan Chief Complaint/Hosp Course ASSESSMENT AND PLAN: - Acute bronchitis. Dr. Oshea is following an infection disease consultation. Continue antibiotics per ID. - Systemic inflammatory response syndrome with persistent leukocytosis. - Persistent leukocytosis, Dr. Linder is following in hematology oncology consultation. Patient refused bone marrow bone biopsy. - Acute kidney injury secondary to dehydration, resolving - Hypothyroidism, continue Synthroid. - Hypernatremia secondary to dehydration, resolving. - Status post CVA - Status post breast cancer with left mastectomy Further recommendations based on clinical course. Plan of care discussed with Dr. Portillo. Problems: Subjective 24 Hr Interval Summary Free Text/Dictation Patient complains of productive cough and generalized body pain, continue Robitussin [id number]. Exam/Review of Systems Vital Signs Vitals Vital Signs Date Time Temp Pulse Resp B/P Pulse Ox O2 Delivery O2 Flow Rate FiO2 05/12/16 08:00 Nasal Cannula 2.0 05/12/16 07:35 97.7 90 17 156/69 94 Intake and Output 05/11/16 05/11/16 05/12/16 15:00 23:00 07:00 Intake Total 200 ml 700 ml 480 ml Balance 200 ml 700 ml 480 ml Exam Constitutional: alert, oriented Psych: no complaints Head: atraumatic, normocephalic Eyes: nl conjunctiva ENMT: nl external ears & nose Neck: non-tender, supple Respiratory: clear to auscultation Cardiovascular: nl pulses, regular rate and rhythm Gastrointestinal: non-tender, soft Genitourinary - Female: nl adnexae Musculoskeletal: nl extremities to inspection Extremities: normal pulses Neurological: CRUSHER II-XII intact Skin: other (s/p left mastectomy) Results Result Diagram: 05/10/16 1122 05/10/16 1122 Results 24 hrs Laboratory Tests Test 05/11/16 17:55 05/11/16 20:25 05/12/16 07:51 05/12/16 12:10 Bedside Glucose 127 145 111 148 Medications Medications Current Medications Enoxaparin Sodium (Lovenox) 30 mg DAILY SC Last administered on 3/6/17at 08:27 ; Admin Dose 30 MG; Start 05/08/16 at 09:00 Pantoprazole (Protonix Tab) 40 mg DAILY@06 PO Last administered on 05/12/16 05: 43; Admin Dose 40 MG; Start 05/08/16 at 06:00 Morphine Sulfate (morphine) 2 mg Q4H PRN IV PAIN Last administered on 05/11/16 09:45; Admin Dose 2 MG; Start 05/08/16 at 00:00 Lorazepam (Ativan) 1 mg Q8H PRN PO ANXIETY Last administered on 05/12/16 02:39 ; Admin Dose 1 MG; Start 05/08/16 at 00:00 Bisacodyl (Dulcolax) 5 mg DAILY PRN PO CONSTIPATION Last administered on 20:44; Admin Dose 5 MG; Start 05/08/16 at 00:00 Phenol (Cepastat Lozenge) 1 lozenge Q2H PRN [place] SORE THROAT Last administered on 05/08/16 05:45; Admin Dose 1 LOZENGE; Start 05/08/16 at 00:00 Psyllium Hydrophilic Mucilloid (Metamucil) 1 pkt DAILY PRN PO CONSTIPATION Last administered on 05/09/16 20:44; Admin Dose 1 PKT; Start 05/08/16 at 11:30 Amlodipine Besylate (Norvasc) 2.5 mg DAILY PO Last administered on 05/12/16 08: 24; Admin Dose 2.5 MG; Start 05/09/16 at 09:00 Ondansetron HCl (Zofran Inj) 4 mg Q6H PRN IV NAUSEA AND/OR VOMITING; Start 05/08 at 19:00 Acetaminophen (Tylenol Tab) 650 mg Q6H PRN PO PAIN AND OR ELEVATED TEMP; Start 05/08/16 at 19:00 Linagliptin (Tradjenta) 5 mg HS PO Last administered on 05/10/16 21:13; Admin Dose 5 MG; Start 05/09/16 at 21:00 Diagnostic Test (Pha) (Accucheck) 1 ea 02 XX ; Start 05/10/16 at 02:00 Miscellaneous Information 1 ea NOTE XX ; Start 05/09/16 at 17:30 Glucose (Glutose) 15 gm Q15M PRN PO DECREASED GLUCOSE; Start 05/09/16 at 17:30 Glucose (Glutose) 22.5 gm Q15M PRN PO DECREASED GLUCOSE; Start 05/09/16 at 17:30 Dextrose (D50w Syringe) 25 ml Q15M PRN IV DECREASED GLUCOSE; Start 05/09/16 at 17:30 Dextrose (D50w Syringe) 50 ml Q15M PRN IV DECREASED GLUCOSE; Start 05/09/16 at 17:30 Glucagon (Glucagen) 1 mg Q15M PRN IM DECREASED GLUCOSE; Start 05/09/16 at 17:30 Glucose (Glutose) 15 gm Q15M PRN BUCCAL DECREASED GLUCOSE; Start 05/09/16 at 17: 30 Bisacodyl (Dulcolax Supp) 10 mg DAILY PRN [place] CONSTIPATION Last administered on 05/10/16 04:44; Admin Dose 10 MG; Start 05/10/16 at 05:00 Clonidine (Catapres) 0.1 mg Q6H PRN PO ELEVATED BLOOD PRESSURE Last administered on 05/10/16 21:40; Admin Dose 0.1 MG; Start 05/10/16 at 21:30 Levofloxacin (Levaquin) 500 mg DAILY@06 GTB Last administered on 05/12/16 05:43 ; Admin Dose 500 MG; Start 05/12/16 at 06:00 Guaifenesin/ Dextromethorphan (Robitussin Dm Liquid Cup) 5 ml Q6 PO ; Start 05/12 at 18:00 KHUSHBU MUELLER May 12, 2016 16:28
[2016-05-12] MEDS: GUAIFENESIN/DM 5ML CUP PO SCH (18:16)
[2016-05-12 19:41] VITALS: BP 146/80; RESP 16
[2016-05-12] MEDS: LINAGLIPTIN 5 MG TABLET PO SCH (20:14)
--- NOTE | 2016-05-12 21:19 | CONS ---
Date/Time of Note Date/Time of Note DATE: 05/12/16 TIME: 21:18 Assessment/Plan Assessment/Plan Chief Complaint/Hosp Course ASSESSMENT: 1. abnormal LFT: MRCP on 05-10-16 showed Mildly dilated common bile duct measuring 9 mm. No obstructing lesion visualized. 2. Systemic inflammatory response syndrome with persistent leukocytosis. 3. Bronchitis, rule out aspiration. 4. Obesity. 5. History of cerebrovascular accident. 6. History of breast cancer. 7. has kidney stone seen on MRCP PLAN: - continue abx - no CBD stone - urology eval for kidney stone - continue other supportive care Problems: Consultation Date/Type/Reason Admit Date/Time May 07, 2016 at 20:54 Initial Consult Date 05/09/16 Type of Consultation: GI Referring Provider: CIRILO JACKMAN MD 24 HR Interval Summary Free Text/Dictation no abdominal pain, trying to eat, no n/v Exam/Review of Systems Vital Signs Vitals Vital Signs Date Time Temp Pulse Resp B/P Pulse Ox O2 Delivery O2 Flow Rate FiO2 05/12/16 19:41 99.2 94 16 146/80 94 05/12/16 08:00 Nasal Cannula 2.0 Intake and Output 05/11/16 05/11/16 05/12/16 15:00 23:00 07:00 Intake Total 200 ml 700 ml 480 ml Balance 200 ml 700 ml 480 ml Exam Constitutional: alert, oriented, well developed Psych: nl mood/affect, no complaints Head: atraumatic, normocephalic Eyes: EOMI, nl conjunctiva, nl lids, nl sclera ENMT: mucosa pink and moist, nl external ears & nose, nl lips & teeth, nl nasal mucosa & septum Neck: non-tender, supple Respiratory: clear to auscultation, normal air movement Cardiovascular: nl pulses, regular rate and rhythm Gastrointestinal: bowel sounds, non-tender, soft Results Result Diagram: 05/10/16 1122 05/10/16 1122 Results 24 hrs Laboratory Tests Test 05/12/16 07:51 05/12/16 12:10 05/12/16 17:30 05/12/16 20:13 Bedside Glucose 111 148 94 112 Medications Medications Current Medications Enoxaparin Sodium (Lovenox) 30 mg DAILY SC Last administered on 05/12/16t 08:27 ; Admin Dose 30 MG; Start 05/08/16 at 09:00 Pantoprazole (Protonix Tab) 40 mg DAILY@06 PO Last administered on 05/12/16 05: 43; Admin Dose 40 MG; Start 05/08/16 at 06:00 Morphine Sulfate (morphine) 2 mg Q4H PRN IV PAIN Last administered on 05/11/16 09:45; Admin Dose 2 MG; Start 05/08/16 at 00:00 Lorazepam (Ativan) 1 mg Q8H PRN PO ANXIETY Last administered on 05/12/16 02:39 ; Admin Dose 1 MG; Start 05/08/16 at 00:00 Bisacodyl (Dulcolax) 5 mg DAILY PRN PO CONSTIPATION Last administered on 20:44; Admin Dose 5 MG; Start 05/08/16 at 00:00 Phenol (Cepastat Lozenge) 1 lozenge Q2H PRN [place] SORE THROAT Last administered on 05/08/16 05:45; Admin Dose 1 LOZENGE; Start 05/08/16 at 00:00 Psyllium Hydrophilic Mucilloid (Metamucil) 1 pkt DAILY PRN PO CONSTIPATION Last administered on 05/09/16 20:44; Admin Dose 1 PKT; Start 05/08/16 at 11:30 Amlodipine Besylate (Norvasc) 2.5 mg DAILY PO Last administered on 05/12/16 08: 24; Admin Dose 2.5 MG; Start 05/09/16 at 09:00 Ondansetron HCl (Zofran Inj) 4 mg Q6H PRN IV NAUSEA AND/OR VOMITING; Start 05/08 at 19:00 Acetaminophen (Tylenol Tab) 650 mg Q6H PRN PO PAIN AND OR ELEVATED TEMP; Start 05/08/16 at 19:00 Linagliptin (Tradjenta) 5 mg HS PO Last administered on 05/12/16 20:14; Admin Dose 5 MG; Start 05/09/16 at 21:00 Diagnostic Test (Pha) (Accucheck) 1 ea 02 XX ; Start 05/10/16 at 02:00 Miscellaneous Information 1 ea NOTE XX ; Start 05/09/16 at 17:30 Glucose (Glutose) 15 gm Q15M PRN PO DECREASED GLUCOSE; Start 05/09/16 at 17:30 Glucose (Glutose) 22.5 gm Q15M PRN PO DECREASED GLUCOSE; Start 05/09/16 at 17:30 Dextrose (D50w Syringe) 25 ml Q15M PRN IV DECREASED GLUCOSE; Start 05/09/16 at 17:30 Dextrose (D50w Syringe) 50 ml Q15M PRN IV DECREASED GLUCOSE; Start 05/09/16 at 17:30 Glucagon (Glucagen) 1 mg Q15M PRN IM DECREASED GLUCOSE; Start 05/09/16 at 17:30 Glucose (Glutose) 15 gm Q15M PRN BUCCAL DECREASED GLUCOSE; Start 05/09/16 at 17: 30 Bisacodyl (Dulcolax Supp) 10 mg DAILY PRN [place] CONSTIPATION Last administered on 05/10/16 04:44; Admin Dose 10 MG; Start 05/10/16 at 05:00 Clonidine (Catapres) 0.1 mg Q6H PRN PO ELEVATED BLOOD PRESSURE Last administered on 05/10/16 21:40; Admin Dose 0.1 MG; Start 05/10/16 at 21:30 Levofloxacin (Levaquin) 500 mg DAILY@06 GTB Last administered on 05/12/16 05:43 ; Admin Dose 500 MG; Start 05/12/16 at 06:00 Guaifenesin/ Dextromethorphan (Robitussin Dm Liquid Cup) 5 ml Q6 PO Last administered on 05/12/16 18:16; Admin Dose 5 ML; Start 05/12/16 at 18:00 KAYLI BEARD MD May 12, 2016 21:18
[2016-05-13] MEDS: ACCUCHECK XX SCH (01:12)
[2016-05-13] MEDS: PANTOPRAZOLE (EC) 40 MG TAB PO SCH (05:15)
[2016-05-13] MEDS: LEVOFLOXACIN 500 MG TAB GTB SCH (05:15)
[2016-05-13] MEDS: GUAIFENESIN/DM 5ML CUP PO SCH ×5 (05:15→23:52)
[2016-05-13] MEDS: LEVOTHYROXINE 150 MCG TAB PO SCH (05:15)
[2016-05-13] MEDS: INSULIN ASPART [NOVOLOG] 3 ML PEN SC SCH ×4 (07:50→20:12)
[2016-05-13 08:54] VITALS: BP 134/63; RESP 14
[2016-05-13] MEDS: AMLODIPINE 2.5 MG TAB PO SCH (09:23)
[2016-05-13] MEDS: ENOXAPARIN 30 MG/0.3 ML SYG SC SCH (09:25)
--- NOTE | 2016-05-13 11:34 | CONS ---
Date/Time of Note Date/Time of Note DATE: 05/13/16 TIME: 11:33 Assessment/Plan Assessment/Plan Chief Complaint/Hosp Course SUBJECTIVE: No acute changes overnight. The patient is sleeping, no fevers, refused labs, refused activity, wakes up but goes back to sleep, nad ANTIMICROBIALS: Levaquin. PHYSICAL EXAMINATION: GENERAL: This is obese elderly woman who is in no distress. HEENT: Head atraumatic, normocephalic. Sclerae anicteric. Buccal mucosa dry. NECK: Supple. CHEST: Rise symmetrical. Breath sounds diminished. HEART: S1, S2. ABDOMEN: Soft. Bowel tones present. EXTREMITIES: No cyanosis. ASSESSMENT: 1. Systemic inflammatory response syndrome with persistent leukocytosis ?MDS. 2. Bronchitis, rule out aspiration. 3. Kidney stone with positive urinalysis on admission. 4. Obesity. 5. History of cerebrovascular accident. 6. History of breast cancer. PLAN: Remains unchanged, continue present care, abx, follow GI/urology/ hematology rec-s, refused BM bx. DW staff Problems: Consultation Date/Type/Reason Admit Date/Time May 07, 2016 at 20:54 Initial Consult Date 05/09/16 Type of Consultation: ID Referring Provider: CIRILO JACKMAN MD Exam/Review of Systems Vital Signs Vitals Vital Signs Date Time Temp Pulse Resp B/P Pulse Ox O2 Delivery O2 Flow Rate FiO2 05/13/16 08:54 98.6 94 14 134/63 93 05/12/16 08:00 Nasal Cannula 2.0 Intake and Output 05/12/16 05/12/16 05/13/16 14:59 22:59 06:59 Intake Total 600 ml 850 ml Balance 600 ml 850 ml Results Result Diagram: 05/10/16 1122 05/10/16 1122 Results 24 hrs Laboratory Tests Test 05/12/16 12:10 05/12/16 17:30 05/12/16 20:13 05/13/16 08:36 Bedside Glucose 148 94 112 131 Medications Medications Current Medications Enoxaparin Sodium (Lovenox) 30 mg DAILY SC Last administered on 05/13/16 09:25 ; Admin Dose 30 MG; Start 05/08/16 at 09:00 Pantoprazole (Protonix Tab) 40 mg DAILY@06 PO Last administered on 05/13/16 05: 15; Admin Dose 40 MG; Start 05/08/16 at 06:00 Morphine Sulfate (morphine) 2 mg Q4H PRN IV PAIN Last administered on 05/11/16 09:45; Admin Dose 2 MG; Start 05/08/16 at 00:00 Lorazepam (Ativan) 1 mg Q8H PRN PO ANXIETY Last administered on 05/12/16 02:39 ; Admin Dose 1 MG; Start 05/08/16 at 00:00 Bisacodyl (Dulcolax) 5 mg DAILY PRN PO CONSTIPATION Last administered on 20:44; Admin Dose 5 MG; Start 05/08/16 at 00:00 Phenol (Cepastat Lozenge) 1 lozenge Q2H PRN MT SORE THROAT Last administered on 05/08/16 05:45; Admin Dose 1 LOZENGE; Start 05/08/16 at 00:00 Psyllium Hydrophilic Mucilloid (Metamucil) 1 pkt DAILY PRN PO CONSTIPATION Last administered on 05/09/16 20:44; Admin Dose 1 PKT; Start 05/08/16 at 11:30 Amlodipine Besylate (Norvasc) 2.5 mg DAILY PO Last administered on 05/13/16 09: 23; Admin Dose 2.5 MG; Start 05/09/16 at 09:00 Ondansetron HCl (Zofran Inj) 4 mg Q6H PRN IV NAUSEA AND/OR VOMITING; Start 05/08 at 19:00 Acetaminophen (Tylenol Tab) 650 mg Q6H PRN PO PAIN AND OR ELEVATED TEMP; Start 05/08/16 at 19:00 Linagliptin (Tradjenta) 5 mg HS PO Last administered on 05/12/16 20:14; Admin Dose 5 MG; Start 05/09/16 at 21:00 Diagnostic Test (Pha) (Accucheck) 1 ea 02 XX ; Start 05/10/16 at 02:00 Miscellaneous Information 1 ea NOTE XX ; Start 05/09/16 at 17:30 Glucose (Glutose) 15 gm Q15M PRN PO DECREASED GLUCOSE; Start 05/09/16 at 17:30 Glucose (Glutose) 22.5 gm Q15M PRN PO DECREASED GLUCOSE; Start 05/09/16 at 17:30 Dextrose (D50w Syringe) 25 ml Q15M PRN IV DECREASED GLUCOSE; Start 05/09/16 at 17:30 Dextrose (D50w Syringe) 50 ml Q15M PRN IV DECREASED GLUCOSE; Start 05/09/16 at 17:30 Glucagon (Glucagen) 1 mg Q15M PRN IM DECREASED GLUCOSE; Start 05/09/16 at 17:30 Glucose (Glutose) 15 gm Q15M PRN BUCCAL DECREASED GLUCOSE; Start 05/09/16 at 17: 30 Bisacodyl (Dulcolax Supp) 10 mg DAILY PRN [place] CONSTIPATION Last administered on 05/10/16 04:44; Admin Dose 10 MG; Start 05/10/16 at 05:00 Clonidine (Catapres) 0.1 mg Q6H PRN PO ELEVATED BLOOD PRESSURE Last administered on 05/10/16 21:40; Admin Dose 0.1 MG; Start 05/10/16 at 21:30 Levofloxacin (Levaquin) 500 mg DAILY@06 GTB Last administered on 05/13/16 05:15 ; Admin Dose 500 MG; Start 05/12/16 at 06:00 Guaifenesin/ Dextromethorphan (Robitussin Dm Liquid Cup) 5 ml Q6 PO Last administered on 05/13/16 05:15; Admin Dose 5 ML; Start 05/12/16 at 18:00 SAL SIMON NP May 13, 2016 11:34
[2016-05-13 19:07] LABS: ADD SCAN DIFF NO
[2016-05-13 19:09] LABS: ABNORMAL IP MESSAGE 1; HEMATOCRIT 38.2 % (37.0-47.0); HEMOGLOBIN 12.9 g/dl (12.0-16.0); MEAN CORPUSCULAR HEMOGLOBIN 32.4 pg (29.0-33.0); MEAN CORPUSCULAR HGB CONC 33.8 g/dl (32.0-37.0); MEAN PLATELET VOLUME 11.6 fl (7.4-10.4); PLATELET COUNT 141 10^3/UL (140-415); RED BLOOD COUNT 3.98 10^6/ul (4.20-5.40); WHITE BLOOD COUNT 22.3 10^3/ul (4.8-10.8)
[2016-05-13 19:26] LABS: LYMPHOCYTES # 11.2 10^3/ul (0.8-2.9); MONOCYTE # 5.1 10^3/ul (0.3-0.9)
--- NOTE | 2016-05-13 19:27 | CONS ---
Date/Time of Note Date/Time of Note DATE: 05/13/16 TIME: 19:25 Assessment/Plan Assessment/Plan Chief Complaint/Hosp Course ASSESSMENT: 1. abnormal LFT: MRCP on 05-10-16 showed Mildly dilated common bile duct measuring 9 mm. No obstructing lesion visualized. 2. Systemic inflammatory response syndrome. 3. Bronchitis, likely due to aspiration event. 4. Obesity. 5. History of cerebrovascular accident. 6. History of breast cancer. 7. has kidney stone seen on MRCP PLAN: - continue abx per ID - no CBD stone on MRCP so no endoscopic procedure needed - urology eval for kidney stone - check labs tomorrow. - continue other supportive care Problems: Consultation Date/Type/Reason Admit Date/Time May 07, 2016 at 20:54 Initial Consult Date 05/09/16 Type of Consultation: GI Referring Provider: CIRILO JACKMAN MD 24 HR Interval Summary Free Text/Dictation No n/v, abdominal pain, tolerating po Exam/Review of Systems Vital Signs Vitals Vital Signs Date Time Temp Pulse Resp B/P Pulse Ox O2 Delivery O2 Flow Rate FiO2 05/13/16 08:54 98.6 94 14 134/63 93 05/12/16 08:00 Nasal Cannula 2.0 Intake and Output 05/12/16 05/12/16 05/13/16 15:00 23:00 07:00 Intake Total 600 ml 850 ml Balance 600 ml 850 ml Exam Constitutional: alert, oriented, well developed Psych: nl mood/affect, no complaints Head: atraumatic, normocephalic Eyes: EOMI, nl conjunctiva, nl lids ENMT: nl external ears & nose, nl lips & teeth, nl nasal mucosa & septum Neck: non-tender, supple Respiratory: clear to auscultation, normal air movement Cardiovascular: nl pulses, regular rate and rhythm Gastrointestinal: bowel sounds, non-tender, soft Results Result Diagram: 05/13/16 1900 05/10/16 1122 Results 24 hrs Laboratory Tests Test 05/12/16 20:13 05/13/16 08:36 05/13/16 12:41 05/13/16 18:10 Bedside Glucose 112 131 126 120 Test 05/13/16 19:00 Hematocrit 38.2 Hemoglobin 12.9 Lymphocytes # Lymphocytes % Mean Corpuscular Hemoglobin 32.4 Mean Corpuscular Hemoglobin Concent 33.8 Mean Corpuscular Volume 96.0 Mean Platelet Volume 11.6 H Monocytes # Monocytes % Neutrophils # Neutrophils % Platelet Count 141 Red Blood Count 3.98 L Red Cell Distribution Width 14.0 White Blood Count 22.3 H Medications Medications Current Medications Enoxaparin Sodium (Lovenox) 30 mg DAILY SC Last administered on 05/13/16 09:25 ; Admin Dose 30 MG; Start 05/08/16 at 09:00 Pantoprazole (Protonix Tab) 40 mg DAILY@06 PO Last administered on 05/13/16 05: 15; Admin Dose 40 MG; Start 05/08/16 at 06:00 Morphine Sulfate (morphine) 2 mg Q4H PRN IV PAIN Last administered on 05/11/16 09:45; Admin Dose 2 MG; Start 05/08/16 at 00:00 Lorazepam (Ativan) 1 mg Q8H PRN PO ANXIETY Last administered on 05/12/16 02:39 ; Admin Dose 1 MG; Start 05/08/16 at 00:00 Bisacodyl (Dulcolax) 5 mg DAILY PRN PO CONSTIPATION Last administered on 20:44; Admin Dose 5 MG; Start 05/08/16 at 00:00 Phenol (Cepastat Lozenge) 1 lozenge Q2H PRN MT SORE THROAT Last administered on 05/08/16 05:45; Admin Dose 1 LOZENGE; Start 05/08/16 at 00:00 Psyllium Hydrophilic Mucilloid (Metamucil) 1 pkt DAILY PRN PO CONSTIPATION Last administered on 05/09/16 20:44; Admin Dose 1 PKT; Start 05/08/16 at 11:30 Amlodipine Besylate (Norvasc) 2.5 mg DAILY PO Last administered on 05/13/16 09: 23; Admin Dose 2.5 MG; Start 05/09/16 at 09:00 Ondansetron HCl (Zofran Inj) 4 mg Q6H PRN IV NAUSEA AND/OR VOMITING; Start 05/08 at 19:00 Acetaminophen (Tylenol Tab) 650 mg Q6H PRN PO PAIN AND OR ELEVATED TEMP; Start 05/08/16 at 19:00 Linagliptin (Tradjenta) 5 mg HS PO Last administered on 05/12/16 20:14; Admin Dose 5 MG; Start 05/09/16 at 21:00 Diagnostic Test (Pha) (Accucheck) 1 ea 02 XX ; Start 05/10/16 at 02:00 Miscellaneous Information 1 ea NOTE XX ; Start 05/09/16 at 17:30 Glucose (Glutose) 15 gm Q15M PRN PO DECREASED GLUCOSE; Start 05/09/16 at 17:30 Glucose (Glutose) 22.5 gm Q15M PRN PO DECREASED GLUCOSE; Start 05/09/16 at 17:30 Dextrose (D50w Syringe) 25 ml Q15M PRN IV DECREASED GLUCOSE; Start 05/09/16 at 17:30 Dextrose (D50w Syringe) 50 ml Q15M PRN IV DECREASED GLUCOSE; Start 05/09/16 at 17:30 Glucagon (Glucagen) 1 mg Q15M PRN IM DECREASED GLUCOSE; Start 05/09/16 at 17:30 Glucose (Glutose) 15 gm Q15M PRN BUCCAL DECREASED GLUCOSE; Start 05/09/16 at 17: 30 Bisacodyl (Dulcolax Supp) 10 mg DAILY PRN [place] CONSTIPATION Last administered on 05/10/16 04:44; Admin Dose 10 MG; Start 05/10/16 at 05:00 Clonidine (Catapres) 0.1 mg Q6H PRN PO ELEVATED BLOOD PRESSURE Last administered on 05/10/16 21:40; Admin Dose 0.1 MG; Start 05/10/16 at 21:30 Levofloxacin (Levaquin) 500 mg DAILY@06 GTB Last administered on 05/13/16 05:15 ; Admin Dose 500 MG; Start 05/12/16 at 06:00 Guaifenesin/ Dextromethorphan (Robitussin Dm Liquid Cup) 5 ml Q6 PO Last administered on 05/13/16 05:15; Admin Dose 5 ML; Start 05/12/16 at 18:00 KAYLI BEARD MD May 13, 2016 19:27
[2016-05-13 19:30] LABS: POTASSIUM 4.1 mmol/L (3.5-5.1)
[2016-05-13 19:33] LABS: CREATININE 0.77 mg/dl (0.44-1.00)
[2016-05-13 19:55] VITALS: BP 136/78; RESP 18
[2016-05-13] MEDS: LINAGLIPTIN 5 MG TABLET PO SCH (20:12)
--- NOTE | 2016-05-13 23:49 | DS ---
DATE OF ADMISSION: 05/07/2016 DATE OF DISCHARGE: 05/13/2016 FINAL DIAGNOSES: 1. Acute bronchitis, status post treatment. 2. Systemic inflammatory response syndrome with persistent leukocytosis. 3. Persistent leukocytosis, most likely secondary to myeloproliferative disorder. 4. Acute kidney injury secondary to dehydration, resolved. 5. Hypothyroidism. 6. Hypernatremia secondary to dehydration, resolved. 7. Status post cerebrovascular accident. 8. Status post breast cancer with left mastectomy by history. 9. Chest pain, acute coronary syndrome ruled out. BRIEF HISTORY: The patient is an 81-year-old female who was brought from [facility] w ith complaints of right chest pain for a couple of days. The patient was admitted for further evalu ation and management. HOSPITAL COURSE: The patient was evaluated by Dr. Ceron in cardiology consultation. The patient's t roponin was negative on admission. The patient was noted to have leukocytosis and was evaluated by Dr. Oshea in infectious disease consultation. The patient had blood cultures, MRSA of nares, and c hest x-ray. They were all found negative. The patient underwent abdominal and pelvis CT, which did not show any acute abnormalities. The patient was diagnosed with acute bronchitis due to complaint s of cough and was treated on broad spectrum antibiotics, which was downgraded to Levaquin. The pat ient was also receiving breathing treatment. The patient continues to have persistent leukocytosis; however, no fever. The patient was evaluated by Dr. Linder in hematology/oncology consultation. Pr eliminary flow cytometry revealed monoclonal B-cell population, may be consistent with myeloprolifer ative disorder. The patient was suggested to undergo a bone marrow biopsy for definitive diagnosis. However, patient refused any bone marrow biopsy. The patient was also evaluated by Dr. Vu in urology consultation due to patient's kidney stone; however, kidney stone was not obstructing and d id not cause any urinary infection. Therefore, no interventions were advised. The patient had phys ical therapy with minimal improvement in functional mobility. The patient's blood sugar was closely controlled with NovoLog. The patient was also evaluated by Dr. Polanco in gastroenterology consulta tion due to complaint of abdominal pain; however, MRCP did not show any obstructing lesion visualize d, mildly dilated common bile duct. The patient did not have any elevation of liver enzymes and was able to tolerate diet well. The patient's condition resolved. Electrolytes were within normal germain its. The patient will be discharged to intermediate facility. CONDITION ON DISCHARGE: Hemodynamically stable. ACTIVITY: As patient tolerates. DIET: 1800 ADA diet. DISCHARGE MEDICATIONS: 1. Tylenol q.4h. p.r.n. for fever and pain. 2. Norvasc 2.5 mg p.o. daily. 3. Dulcolax 5 mg p.o. daily p.r.n. for constipation. 4. Clonidine 0.5 mg p.o. q.6h. p.r.n. for systolic blood pressure above 160. 5. Hypoglycemia protocol. 6. Accu-Chek q.a.c. and at bedtime with NovoLog mild algorithm sliding scale coverage. 7. Robitussin p.o. q.6h. p.r.n. for cough. 8. Levaquin 500 mg p.o. daily for 2 more days to complete treatment for possible bronchitis. 9. Synthroid 150 mcg p.o. daily before breakfast. 10. Tradjenta 5 mg p.o. at bedtime. 11. Ativan 1 mg p.o. q.8 hours p.r.n. for agitation. 12. Zofran 4 mg p.o. 3 times a day p.r.n. for nausea. 13. Protonix 40 mg p.o. daily. 14. Metamucil 1 pack p.o. daily. Interdisciplinary of care was established for this patient. Plan of care was discussed with Dr. Adams aguilera. Dictated By: KHUSHBU MUELL[employer] HE[employer] AND SAFETY SPECIALIST for CIRILO JACKMAN MD, SR/KARINE Conf#: [id number] DID#: [id number]
[2016-05-14] MEDS: ACCUCHECK XX SCH (02:00)
[2016-05-14] MEDS: LEVOTHYROXINE 150 MCG TAB PO SCH (04:47)
[2016-05-14] MEDS: GUAIFENESIN/DM 5ML CUP PO SCH (04:47)
[2016-05-14] MEDS: PANTOPRAZOLE (EC) 40 MG TAB PO SCH (04:47)
[2016-05-14] MEDS: LEVOFLOXACIN 500 MG TAB GTB SCH (04:47)
[2016-05-14] MEDS ORDERED: VITAMIN A & D 5 GM OINT PACKET TOP ONE (04:53)
[2016-05-14 05:43] LABS: ADD SCAN DIFF NO
[2016-05-14 05:56] LABS: ABNORMAL IP MESSAGE 1; HEMATOCRIT 38.2 % (37.0-47.0); HEMOGLOBIN 12.5 g/dl (12.0-16.0); MEAN CORPUSCULAR HEMOGLOBIN 31.5 pg (29.0-33.0); MEAN CORPUSCULAR HGB CONC 32.7 g/dl (32.0-37.0); MEAN CORPUSCULAR VOLUME 96.2 fl (82.0-101.0); MEAN PLATELET VOLUME 12.3 fl (7.4-10.4); PLATELET COUNT 135 10^3/UL (140-415); RED BLOOD COUNT 3.97 10^6/ul (4.20-5.40); RED CELL DISTRIBUTION WIDTH 14.3 % (11.5-14.5); WHITE BLOOD COUNT 27.4 10^3/ul (4.8-10.8)
[2016-05-14 06:37] LABS: ALBUMIN 3.7 g/dl (3.3-4.9)
[2016-05-14 06:38] LABS: POTASSIUM 3.6 mmol/L (3.5-5.1)
[2016-05-14 06:40] LABS: ALBUMIN/GLOBULIN RATIO 0.92; BILIRUBIN,INDIRECT 0.3 mg/dl (0-1.1); BILIRUBIN,TOTAL 0.3 mg/dl (0.2-1.3); CREATININE 0.82 mg/dl (0.44-1.00); TOTAL PROTEIN 7.7 g/dl (6.1-8.1)
[2016-05-14 06:41] LABS: CALCIUM 9.9 mg/dl (8.4-10.2)
[2016-05-14] MEDS: INSULIN ASPART [NOVOLOG] 3 ML PEN SC SCH (07:50)
[2016-05-14] MEDS: AMLODIPINE 2.5 MG TAB PO SCH (09:12)
[2016-05-14] MEDS: ENOXAPARIN 30 MG/0.3 ML SYG SC SCH (09:14)
[2016-05-14 09:57] LABS: LYMPHOCYTES # 14.5 10^3/ul (0.8-2.9); MONOCYTE # 6.6 10^3/ul (0.3-0.9); NEUTROPHIL # 5.2 10^3/ul (1.6-7.5); POLYCHROMASIA 1+
--- NOTE | 2016-05-14 12:57 | PN ---
DATE: 05/14/2016 SUBJECTIVE: No events overnight. The patient is lying comfortably in bed, no fevers. WBC today 27.4, platelets 135, neutrophils 19, bands 4, lymphs 53, monos 24, BUN 21, creatinine 0.82 . ANTIMICROBIALS: Levaquin. PHYSICAL EXAMINATION: GENERAL: This is a chronically ill-appearing, elderly woman who is lying comfortably in bed. HEENT: Head atraumatic, normocephalic. Sclerae anicteric. Buccal mucosa dry. NECK: Supple. CHEST: Rise symmetrical. Breath sounds diminished. HEART: S1, S2. ABDOMEN: Soft, bowel sounds present. EXTREMITIES: Without cyanosis. ASSESSMENT: 1. Systemic inflammatory response syndrome with persistent leukocytosis, likely myelodysplasia. 2. Acute bronchitis. 3. Obesity. 4. History of cerebrovascular accident and breast cancer. 5. Noncompliance. PLAN: The patient remains stable. She is being followed by multiple consultants. She is being fol lowed by oncology. Refused bone marrow biopsy. We will continue her on current antimicrobials to c richarlete the course pending discharge to [facility]. Dictated By: SAL SIMON SERVOMECHANISM ASSEMBLER for SHARONDA WISE MD NI/NTS Conf#: [id number] DID#: [id number]
--- NOTE | 2016-05-14 17:50 | CONS ---
Date/Time of Note Date/Time of Note DATE: 05/14/16 TIME: 17:50 Assessment/Plan Assessment/Plan Chief Complaint/Hosp Course ASSESSMENT: 1. abnormal LFT: MRCP on 05-10-16 showed Mildly dilated common bile duct measuring 9 mm. No obstructing lesion visualized. 2. Systemic inflammatory response syndrome. 3. Bronchitis, likely due to aspiration event. 4. Obesity. 5. History of cerebrovascular accident. 6. History of breast cancer. 7. has kidney stone seen on MRCP PLAN: - continue abx per ID - no CBD stone on MRCP so no endoscopic procedure needed - urology eval for kidney stone - continue other supportive care - stable from gi perspective to dc if ok with primary and other consultants. Problems: Consultation Date/Type/Reason Admit Date/Time May 07, 2016 at 20:54 Initial Consult Date 05/09/16 Type of Consultation: GI Referring Provider: CIRILO JACKMAN MD 24 HR Interval Summary Free Text/Dictation abdominal pain improved, no n/v Exam/Review of Systems Vital Signs Vitals Vital Signs Date Time Temp Pulse Resp B/P Pulse Ox O2 Delivery O2 Flow Rate FiO2 05/13/16 19:55 98.5 72 18 136/78 98 05/12/16 08:00 Nasal Cannula 2.0 Intake and Output 05/13/16 05/13/16 05/14/16 15:00 23:00 07:00 Intake Total 910 ml Balance 910 ml Exam Constitutional: frail Head: atraumatic, normocephalic Eyes: EOMI, nl conjunctiva, nl lids, nl sclera ENMT: mucosa pink and moist, nl external ears & nose, nl lips & teeth, nl nasal mucosa & septum Neck: non-tender, supple Respiratory: clear to auscultation, normal air movement Cardiovascular: nl pulses, regular rate and rhythm Gastrointestinal: bowel sounds, distended, non-tender, soft Results Result Diagram: 05/14/16 0450 05/14/16 0450 Results 24 hrs Laboratory Tests Test 05/13/16 18:10 05/13/16 19:00 05/13/16 20:11 05/14/16 04:50 Bedside Glucose 120 143 Anion Gap 15 16 Blood Urea Nitrogen 21 H 21 H Calcium Level 10.0 9.9 Carbon Dioxide Level 28 28 Chloride Level 101 101 Creatinine 0.77 0.82 Glucose Level 157 134 Hematocrit 38.2 38.2 Hemoglobin 12.9 12.5 Lymphocytes # 11.2 H 14.5 H Lymphocytes % 50.0 53.0 H Mean Corpuscular Hemoglobin 32.4 31.5 Mean Corpuscular Hemoglobin Concent 33.8 32.7 Mean Corpuscular Volume 96.0 96.2 Mean Platelet Volume 11.6 H 12.3 H Monocytes # 5.1 H 6.6 H Monocytes % 23.0 H 24.0 H Neutrophils # 6.0 5.2 Neutrophils % 27.0 L 19.0 L Platelet Count 141 135 L Potassium Level 4.1 3.6 Red Blood Count 3.98 L 3.97 L Red Cell Distribution Width 14.0 14.3 Sodium Level 140 141 White Blood Count 22.3 H 27.4 #H Alanine Aminotransferase (ALT/SGPT) 22 Albumin 3.7 Albumin/Globulin Ratio 0.92 Alkaline Phosphatase 92 Aspartate Amino Transf (AST/SGOT) 24 Band Neutrophils % 4.0 Direct Bilirubin 0.00 Globulin 4.00 H Indirect Bilirubin 0.3 Polychromasia 1+ Total Bilirubin 0.3 Total Protein 7.7 Test 05/14/16 08:35 05/14/16 11:41 05/14/16 16:31 Bedside Glucose 103 Lab Scanned Report REFERENCE LAB REFERENCE LAB KAYLI BEARD MD May 14, 2016 17:50
== END 2016-05-14 13:05 | DRG 841 ==
LOC: E/R 14:40 → MS1 20:54
PROVIDERS: ADMIT Internal Medicine; ATTEND Internal Medicine
DX: C94.6 Myelodysplastic disease, not elsewhere classified (principal); J98.11 Atelectasis; N17.9 Acute kidney failure, unspecified; E87.0 Hyperosmolality and hypernatremia; D69.6 Thrombocytopenia, unspecified; R65.10 Systemic inflammatory response syndrome (SIRS) of non-infectious origin without acute organ dysfunction; E86.0 Dehydration; I11.9 Hypertensive heart disease without heart failure; N20.0 Calculus of kidney; J20.9 Acute bronchitis, unspecified; Z85.3 Personal history of malignant neoplasm of breast; Z90.12 Acquired absence of left breast and nipple; Z86.73 Personal history of transient ischemic attack (TIA), and cerebral infarction without residual deficits; E78.5 Hyperlipidemia, unspecified; F32.9 Major depressive disorder, single episode, unspecified; E03.9 Hypothyroidism, unspecified; D64.9 Anemia, unspecified; I25.10 Atherosclerotic heart disease of native coronary artery without angina pectoris; Q63.0 Accessory kidney; I70.0 Atherosclerosis of aorta; K46.9 Unspecified abdominal hernia without obstruction or gangrene; R93.7 Abnormal findings on diagnostic imaging of other parts of musculoskeletal system; K83.9 Disease of biliary tract, unspecified
CPT/HCPCS: 36415; 71010; 71250; 74176; 74181; 76705; 80048; 80053; 80061; 81001; 81003; 82150; 82607; 82728; 82962; 83036; 83540; 83605; 83615; 83690; 83735; 84100; 84443; 84484; 85025; 85045; 86703; 86704; 86709; 86803; 87040; 87081; 87086; 87340; 90686; 93306; 96374; 96375; 97110; 97162; 97530; A4310; J1650; J1815; J2270; J2405; J2543; J7030; J7040